=== PATIENT | female | born 1950 | race Caucasian/White ===

== ENCOUNTER 2018-09-24 07:44 | Day surgery (SDC) | payer MEDICARE, OTHER ==
[~2018-09-24] VITALS: Ht 167.6 cm; Wt 93.9 kg
--- NOTE | ~2018-09-24 | OP ---
PATIENT NAME: SAJAN BONNER MEDICAL RECORD: [id number] :50 LOCATION:[facility] ADMISSION DATE: SURGEON: AILEEN GUIDRY MD DATE OF OPERATION: 09/24/2018 REFERRING PHYSICIAN: Isidro Copeland MD PREOPERATIVE DIAGNOSIS: ESRD, dependence on hemodialysis. POSTOPERATIVE DIAGNOSIS: ESRD, dependence on hemodialysis. OPERATION PERFORMED: Implantation of a Propaten 6-mm straight PTFE AV graft in the right arm proximal brachial artery to proximal basilic vein in loop configuration. SURGEON: Aileen Guidry MD ANESTHESIA: General plus regional block per [employer]. PREOPERATIVE NOTE: Ms. Bonner is a 68-year-old white female patient with end-stage renal disease, who is dialyzing now with a tunneled dialysis catheter and needs long-term access. She has had a stroke and has a somewhat withered right arm and it is the right arm we will try to place her access in. She has had a vein mapping study which indicated possibly adequate-sized basilic and maybe cephalic vein in the right arm for primary fistula. The scrap preparer's recommendation was that she have an AV graft. DESCRIPTION OF PROCEDURE: The patient was given a supraclavicular nerve block and then IV sedation in supine position. She was prepped and draped in a sterile manner. We applied nitroglycerin to the skin of the arm and forearm and applied a Carey drain as a proximal venous tourniquet. I examined her with Duplex ultrasound and found that her veins were really quite small and I thought that we could not be assured that she would mature a primary fistula and decided at that point to go ahead and do a graft. This would need to be based proximally to reduce her risk of steal. I examined her axilla and upper arm with ultrasound and identified a site in the proximal basilic vein and proximal brachial artery just out beyond the axilla for the anastomosis. The patient was given a general anesthetic because of inadequate analgesia in the axilla and upper arm. A longitudinal incision was made in the brachial artery and the basilic vein were exposed and controlled with Silastic loops. I chose a 6-mm Propaten graft and placed it in an almost circular tunnel such that it would take origin from the brachial artery and pass inferiorly and laterally and then back up medially to the basilic vein. The artery was occluded with Silastic loops, opened, and flushed with heparinized saline. The graft was shortened and bevelled and it was then also flushed with heparinized saline. It was then sutured end-to-side end of graft to side of artery with continuous running 6-0 Prolene, and after that, the suture line was treated with BioGlue. The suture line was found to be hemostatic. The graft and artery were flushed again with heparinized saline and the graft clamped. The vein was occluded with Silastic loops and opened. It was flushed with heparinized saline. The graft was shortened and bevelled and anastomosed end-to-side to the vein with running 6-0 Prolene. When all was completed and the loops were released and clamps opened, excellent flow was established immediately in the graft. There was no bleeding of any consequence. The wounds were irrigated with saline and then closed with interrupted inverted 3-0 Vicryl and then running intracuticular 4-0 Stratafix OPERATIVE REPORT [id number] SAJAN BONNER suture. The incisions were sealed with glue and dressed with Maxorb Ag, Tegaderm, and Cavilon skin prep. Preoperatively, the patient had a very weak palpable radial pulse. Postoperatively, she has very weak pulsatile flow in the radial artery with the graft occluded and it essentially vanishes with opening the graft. The ulnar artery seems to be dominant with a good pulsatile Doppler flow signal with the graft compressed, but this maintains a pretty good pulsatile signal even with the graft open. There was good flow by Doppler in the brachial artery with and without graft compression at the level of the elbow. I believe the patient will have adequate perfusion of the hand and forearm. My plan is for her to go home this evening and return to see me in my office next week. She will return sooner if there are any problems. The patient was awakened and taken to the recovery room. Blood loss was minimal, probably 5-10 cc, none was replaced. All sponges, instruments, and needles were accounted for and no specimen was submitted for histopathology. She is given a prescription for #20 tramadol 50 mg tablets, she can take one or two p.o. q. 4 hours p.r.n. pain; and in addition, she will be encouraged to take Tylenol and/or ibuprofen along with or in between the tramadol doses. TRANSINT:[id number] Voice Confirmation ID: [id number] DOCUMENT ID: [id number] AILEEN GUIDRY MD at 1132 CC: ISIDRO COPELAND [id number] DICTATION DATE: 09/24/181831 MONITORING AND EVALUATION ADVISOR: 09/24/181911 [facility] 09/24/18 [facility] [address] [place] [address]
[2018-09-24 08:01] LABS: BASOPHILS 0.3 % (0-2); EOSINOPHILS 2.4 % (0-7); HEMATOCRIT 33.8 % (36.0-48.0); HEMOGLOBIN 10.8 g/dL (12-16); IMMATURE GRANULOCYTES 0.5 % (0-5); LYMPHOCYTES 21.3 % (15-50); MCH 29.8 pg (26.0-34.0); MCV 93.4 fL (80.0-100.0); MEAN PLATELET VOLUME 8.8 fL (7.4-10.4); NEUTROPHILS 67.5 % (40-80); PLATELET COUNT 180 10x3/uL (130-400); RBC 3.62 10x6/uL (4.00-5.40); WBC 6.2 10x3/uL (4.8-10.8)
[2018-09-24 08:21] LABS: ANION GAP 11.7 mmol/L (8-16); CALCIUM 8.5 mg/dL (8.5-10.1); CARBON DIOXIDE 28.7 mmol/L (21.0-32.0); CREATININE - SERUM 3.2 mg/dL (0.6-1.3); POTASSIUM - SERUM 4.4 mmol/L (3.5-5.1)
[2018-09-24 08:36] LABS: INR 0.96 (0.85-1.17); PROTIME 12.4 SECONDS (11.6-15.0)
[2018-09-24 08:37] LABS: APTT 28.1 SECONDS (22.8-39.4)
[2018-09-24] MEDS ORDERED: LEVOTHYROXINE75 MCG PO (10:03)
[2018-09-24] MEDS ORDERED: PAROXETINE HCL10 MG PO (10:03)
[2018-09-24] MEDS ORDERED: NORVASC10 MG (10:05)
[2018-09-24] MEDS ORDERED: BUMEX2 MG PO (10:05)
[2018-09-24] MEDS ORDERED: ZYLOPRIM100 MG (10:06)
[2018-09-24] MEDS ORDERED: RENA-VITE TABL0.8 MG PO (10:06)
[2018-09-24] MEDS ORDERED: AMBIEN5 MG PO (10:07)
[2018-09-24] MEDS ORDERED: CYTOMEL5 MCG PO (10:07)
[2018-09-24] MEDS ORDERED: RENVELA800 MG PO (10:08)
[2018-09-24] MEDS ORDERED: HYDRALAZINE HCL50 MG PO (10:08)
[2018-09-24] MEDS ORDERED: LIPITOR40 MG PO (10:09)
[2018-09-24] MEDS ORDERED: REQUIP1 MG PO (10:09)
[2018-09-24] MEDS ORDERED: ISOSORBIDE MONO60 M1 PO (10:10)
[2018-09-24] MEDS ORDERED: COREG6.25 MG PO (10:10)
[2018-09-24] MEDS ORDERED: CARDURA2 MG PO (10:11)
[2018-09-24 10:22] VITALS: BP 151/63; Ht 167.6 cm; Wt 93.9 kg
[2018-09-24] MEDS ORDERED: ULTRAM50 MG PO (19:02)
== END 2018-09-24 20:31 | disposition home or self-care (01) ==
LOC: D.OPS 07:44
PROVIDERS: Surgery
DX: N18.6 End stage renal disease (principal); Z99.2 Dependence on renal dialysis; Z01.812 Encounter for preprocedural laboratory examination

== ENCOUNTER 2018-10-02 10:02 | Day surgery (SDC) | payer MEDICARE, OTHER ==
[~2018-10-02] VITALS: Ht 167.6 cm; Wt 93.4 kg
[~2018-10-02 10:02] MED LIST: AMBIEN5 MG PO; BUMEX2 MG PO; CARDURA2 MG PO; COREG6.25 MG PO; CYTOMEL5 MCG PO; HYDRALAZINE HCL50 MG PO; ISOSORBIDE MONO60 M1 PO; LEVOTHYROXINE75 MCG PO; LIPITOR40 MG PO; NORVASC10 MG; PAROXETINE HCL10 MG PO; RENA-VITE TABL0.8 MG PO; RENVELA800 MG PO; REQUIP1 MG PO; ULTRAM50 MG PO; ZYLOPRIM100 MG
[2018-10-02 10:23] VITALS: BP 190/78
[2018-10-02 11:45] LABS: BASOPHILS 0.4 % (0-2); EOSINOPHILS 4.1 % (0-7); HEMATOCRIT 32.2 % (36.0-48.0); HEMOGLOBIN 10.5 g/dL (12-16); IMMATURE GRANULOCYTES 0.9 % (0-5); MCH 30.2 pg (26.0-34.0); MCHC 32.6 g/dL (31.0-37.0); MCV 92.5 fL (80.0-100.0); MEAN PLATELET VOLUME 9.2 fL (7.4-10.4); MONOCYTES 8.1 % (2-11); NEUTROPHILS 61.5 % (40-80); PLATELET COUNT 180 10x3/uL (130-400); RBC 3.48 10x6/uL (4.00-5.40); RDW 15.5 % (11.5-14.5); WBC 5.7 10x3/uL (4.8-10.8)
[2018-10-02 11:57] LABS: ALBUMIN 3.1 g/dL (3.4-5.0); BILIRUBIN - TOTAL 0.49 mg/dL (0.2-1.3); CALCIUM 9.2 mg/dL (8.5-10.1); CARBON DIOXIDE 27.9 mmol/L (21.0-32.0); CREATININE - SERUM 3.5 mg/dL (0.6-1.3); POTASSIUM - SERUM 3.9 mmol/L (3.5-5.1); PROTEIN - SERUM 6.7 g/dL (6.4-8.2)
[2018-10-02 13:43] VITALS: Ht 167.6 cm; Wt 93.4 kg
== END 2018-10-02 16:10 | disposition home or self-care (01) ==
LOC: D.ER 10:02 → D.OPS 10:02 → EDSTATUS 12:33 → D.OPS 16:10
PROVIDERS: Family Medicine
DX: T82.898A Other specified complication of vascular prosthetic devices, implants and grafts, initial encounter (principal); Y83.8 Other surgical procedures as the cause of abnormal reaction of the patient, or of later complication, without mention of misadventure at the time of the procedure; E11.22 Type 2 diabetes mellitus with diabetic chronic kidney disease; I12.0 Hypertensive chronic kidney disease with stage 5 chronic kidney disease or end stage renal disease; N18.6 End stage renal disease; Z99.2 Dependence on renal dialysis; I25.10 Atherosclerotic heart disease of native coronary artery without angina pectoris; E11.40 Type 2 diabetes mellitus with diabetic neuropathy, unspecified; Z86.73 Personal history of transient ischemic attack (TIA), and cerebral infarction without residual deficits; F41.8 Other specified anxiety disorders; F32.9 Major depressive disorder, single episode, unspecified

== ENCOUNTER → 2018-10-10 15:18 | Outpatient (CLI) | payer MEDICARE, OTHER ==
[2018-10-02 13:43] VITALS: BMI 33.4
== END | disposition home or self-care (01) ==
LOC: D.CT 15:18
DX: N18.6 End stage renal disease (principal)

== ENCOUNTER 2018-11-26 07:37 | Inpatient (IN) | payer MEDICARE, BC ==
[~2018-11-26] VITALS: Ht 167.6 cm; Wt 98.6 kg
--- NOTE | ~2018-11-26 | HEMODYNAMI ---
PATIENT:SAJAN BONNER MEDICAL RECORD: [id number] : 50 [id number] ADMISSION DATE: 11/26/18 Generatedon:11/27/201810:47 Patient name: SAJAN BONNER Patient #: [id number] SSN: : 1950 Date of study: 11/27/2018 Page: Of Hemodynamic Procedure Report Patient Data Patient Demographics Procedure consent was obtained First Name: SAJAN Gender: Female Last Name: HA : 1950 [facility] Initial: S Age: 68 year(s) Patient #: [id number] Race: Unknown Additional ID: [id number] Contact details Address: [address] [place] [address] rd State: [place] City: [place] Zip code: [address] Past Medical History Allergies: No known allergies Admission Admission Data Admission Date: 11/26/2018 Admission Time: 7:37 Room #: D.2138 Lab Results Lab Result Date: 11/27/2018 Lab Result Time: 0:00 Biochemistry Name Units Result Min Max BUN mg/dl 12 --(-*--)-- 7 18 Creatinine mg/dl 0.9 --(-*--)-- 0.6 1.3 CBC Name Units Result Min Max Hemoglobin g/dl 13.7 --(*---)-- 13.5 17.5 Procedure Procedure Types Cath Procedure Diagnostic Procedure C [facility] w/Coronaries Sedation Charges Moderate Sedation up to 45 minutes PCI Procedure Coronary Stent Coronary Stent Initial Procedure Description Procedure Date Procedure Date: 11/27/2018 Procedure Start Time: 9:49 Procedure End Time: 10:47 Procedure Staff Name Function Ricci Jane MD Performing Physician Maria C Mendez RT Monitor Lanie Quispe RN Nurse Tristen Ahumada RT Scrub Michael Ricks RN Direct Marketing Analyst Procedure Data Cath Procedure Fluoroscopy Diagnostic fluoroscopy Total fluoroscopy Time: time: 21.5 min 21.5 min Diagnostic fluoroscopy Total fluoroscopy dose: dose: 1536 mGy 1536 mGy Contrast Material Contrast Material Type Amount (ml) Isovue 300 193 Entry Location Entry Primary Successful Side Size Upsize Upsize Entry Closure Succes sful Closure Location (Fr) 1 (Fr) 2 (Fr) Remarks Device Remarks Femoral Right 5 Fr 6 Fr Exoseal artery Short Estimated blood loss: 10 ml Diagnostic catheters Device Type Used For End Catheter Placement MULTIPACK JL 4.0 5Fr Procedure catheter MULTIPACK 3DRC 5Fr Procedure catheter MULTIPACK Pigtail 5 Fr Procedure catheter Procedure Complications No complications Procedure Medications Medication Administration Route Dosage 0.9% NaCl I.V. Oxygen etCO2 Nasal cannula 2 l/min Lidocaine 2% added to field 20 Heparin Flush Bag added to field 2 bags (1000units/500ml NS) Versed I.V. 2 mg Fentanyl I.V. 50 mcg Versed I.V. 1 mg Fentanyl I.V. 25 mcg Heparin Bolus I.V. 5000 units Integrilin (Bolus I.V. 9 ml 2mg/ml) Versed I.V. 1 mg Fentanyl I.V. 25 mcg Versed I.V. 1 mg Plavix P.O. 300 mg Hemodynamics Rest HGB: 13.7 (g/dl) Heart Rate: 86 (bpm) Pressure Samples Time Site Value (mmHg) Purpose Heart Use Rate(bpm) 9:55 LV 99/-1,3 Snapshot 88 9:56 AO 91/43(62) Pullback 86 9:56 LV 93/0,2 Pullback 86 Gradients Valve Time Site 1 Site 2 Mean SEP/DFP Peak To Heart Use (mmHg) (sec/min) Peak Rate (mmHg) (bpm) Aortic 9:56 LV AO 5 10 2 86 93/0,2 91/43(62) Calculations Valve P-P Mean Valve Index Valve Source Name Gradient Area Flow (cm2) Aortic 2 5 2 5 Snapshots Pre Cath Intra NCS Post Cath Vital Signs Time Heart Resp SPO2 etCO2 NIBP (mmHg) Rhythm Pain Sedation Rate (ipm) (%) (mmHg) Status Level (bpm) 9:35:55 82 13 98 33.2 125/59(80) NSR 0 (11) 10(A) , No pain 9:41:24 84 11 97 31.7 96/51(69) NSR 0 (11) 10(A) , No pain 9:45:44 83 10 97 18.1 98/48(61) NSR 0 (11) 10(A) , No pain 9:50:07 81 18 97 29.4 101/48(67) NSR 0 (11) 10(A) , No pain 9:54:31 82 11 97 31.7 100/45(77) NSR 0 (11) 9(A) , No pain 9:58:53 82 12 97 32.4 107/47(66) NSR 0 (11) 9(A) , No pain 10:03:11 94 10 97 31.7 98/57(73) NSR 0 (11) 9(A) , No pain 10:07:33 86 10 97 32 108/47(77) NSR 0 (11) 9(A) , No pain 10:11:57 87 11 97 31 105/56(80) NSR 0 (11) 9(A) , No pain 10:16:17 85 10 98 32.5 118/59(83) NSR 0 (11) 9(A) , No pain 10:20:42 81 9 98 32.5 110/59(84) NSR 0 (11) 9(A) , No pain 10:25:04 88 10 98 32.5 122/63(90) NSR 0 (11) 9(A) , No pain 10:27:29 86 10 98 33.2 133/59(94) NSR 0 (11) 9(A) , No pain 10:32:00 89 11 98 14.3 140/65(101) NSR 0 (11) 9(A) , No pain 10:36:22 91 10 98 34 117/65(84) NSR 0 (11) 9(A) , No pain 10:41:54 91 13 98 32.5 135/60(87) NSR 0 (11) 10(A) , No pain 10:46:20 81 11 98 9.8 136/60(104) NSR 0 (11) 10(A) , No pain Medications Time Medication Route Dose Verified Delivered Reason Notes Effectiveness by by 9:34:43 0.9% NaCl I.V. kvo Ricci Dela Cruz used for Lucinda Jose Enrique procedure MD POLANCO 9:34:50 Oxygen etCO2 2 Ricci Dela Cruz used for Nasal l/min Lucinda Jose Enrique procedure cannula MD POLANCO 9:34:56 Lidocaine 2% added 20ml Ricci Wynne for local to vial [facility] anesthetic field MD HODGSON 9:35:00 Heparin Flush added 2 Ricci Wynne used for Bag to bags [facility] procedure (1000units/500ml field MD HODGSON NS) 9:46:46 Versed I.V. 2 mg Ricci Lanie for sedation St Saúl Quispe MD RN 9:46:53 Fentanyl I.V. 50 Ricci Lanie for sedation mcg St Saúl Quispe MD RN 9:52:30 Versed I.V. 1 mg Ricci Lanie for sedation St Saúl Quispe MD RN 9:52:43 Fentanyl I.V. 25 Ricci Lanie for sedation mcg St Saúl Quispe MD RN 9:58:56 Heparin Bolus I.V. 5000 Ricci Lanie for verif ied units [facility] anticoagulation with Dr. HODGSON RN Kenneth 9:59:09 Integrilin I.V. 9 ml Ricci Lanie for waste d (Bolus 2mg/ml) LucindaSaúl Quispe anticoagulation 1mL MD POLANCO 10:18:22 Versed I.V. 1 mg Ricci Lanie for sedation St Saúl Quispe MD RN 10:18:26 Fentanyl I.V. 25 Ricci Lanie for sedation mcg St Saúl Quispe MD RN 10:31:40 Versed I.V. 1 mg Ricci Lanie for sedation St Saúl Quispe MD RN 10:41:32 Plavix P.O. 300 Ricci Lanie for mg St Saúl Quispe antiplatelet RN therapy Procedure Log Time Note 8:49:54 Signed procedure consent form obtained from patient. 8:49:55 Diagnostic Cath status Elective 8:49:56 Time tracking: Regular hours (M-F 7:00 - 5:00) 8:50:01 Plan of Care:Hemodynamics will remain stable., Cardiac rhythm will remain stable., Comfort level will be maintained., Respiratory function will remain adequate., Patient/ family verbilizes understanding of procedure., Procedure tolerated without complication., Recovers from procedure without complications.. 8:56:53 H&P Date Dictated: 11/26/2018 New H&P dictated by physician.. 8:57:46 Patient allergic to No known allergies 9:00:34 Lab Result : BUN 12 mg/dl 9:00:34 Lab Result : Hemoglobin 13.7 g/dl 9:00:34 Lab Result : Creatinine 0.9 mg/dl 9:11:33 Michael Ricks RN sent for patient. Start room use. 9:24:38 Patient received from PCU to CCL 1 Alert and oriented. Tansferred to table in Supine position. 9:24:38 Warm blankets applied, and nico hugger turned on for patient comfort. 9:24:39 Correct patient and procedure confirmed by team. 9:24:40 ECG and BP/O2 sat monitors applied to patient. 9:34:35 Vital chart was started 9:34:43 0.9% NaCl kvo I.V. was administered by Lanie Quispe RN; used for procedure; 9:34:50 Oxygen 2 l/min etCO2 Nasal cannula was administered by Lanie Quispe RN; used for procedure; 9:34:56 Lidocaine 2% 20ml vial added to field was administered by Ricci Jane MD; for local anesthetic; 9:35:00 Heparin Flush Bag (1000units/500ml NS) 2 bags added to field was administered by Ricci Jane MD; used for procedure; 9:40:17 Baseline sample Acquired. 9:40:27 Rhythm: sinus rhythm 9:40:28 Pre-procedure instructions explained to patient. 9:40:29 Pre-op teaching completed and patient verbalized understanding. 9:40:30 Family in patients room. 9:40:32 Is patient on blood thinner?Yes 9:40:36 ACC The patient was administered the following blood thiners within the last 24 hours: ACCPlavix 9:40:38 Patient diabetic? Yes. 9:40:39 If diabetic: On Metformin? No 9:40:53 Previous problem with sedation/anesthesia? No ? 9:40:55 Snore? Yes 9:40:56 Sleep apnea? Yes 9:40:58 Deviated septum? No 9:40:59 Opens mouth fully? Yes 9:41:01 Sticks out tongue? Yes 9:41:06 Airway obstruction? No ? 9:41:08 Dentures? No ? 9:41:12 Pre procedure: right dorsailis pedis pulse 2+ Normal; easily identifiable; not easily obliterated 9:41:14 Patient pain scale 0/10 ?. 9:41:44 PATIENT ARRIVAL WITH DIALYSIS CATHETER USED FOR IV ACCESS 9:41:50 Lab results completed and on chart. 9:41:53 Right groin area was prepped with chlora-prep and draped in sterile fashion 9:41:55 Alarms reviewed by R. N. 9:41:55 Sharps counted by scrub and verified by R.N. 9:42:00 Use device set Femoral Dx 9:42:02 ACIST Syringe (60733) opened to sterile field. 9:42:02 Bag Decanter (2002S) opened to sterile field. 9:42:05 ACIST Hand Control (08865) opened to sterile field. 9:42:05 ACIST Manifold (93085) opened to sterile field. 9:42:07 Tegaderm 4 x 4 (1626W) opened to sterile field. 9:42:08 Medline Cath Pack ([id number]) opened to sterile field. 9:42:09 DIAGNOSTIC WIRE .035 260cm J wire (644606) opened to sterile field. 9:42:10 DIAGNOSTIC Multipack 5Fr catheter set (AC3255) opened to sterile field. 9:42:11 SHEATH 5FR [place] (JQN391) opened to sterile field. 9:43:14 Zero performed for pressure channel P1 9:46:26 --------ALL STOP TIME OUT------ 9:46:29 Right groin site verified by team. 9:46:30 Final Timeout: patient, procedure, and site verified with staff and physician. All members of the team are in agreement. 9:46:46 Versed 2 mg I.V. was administered by Lanie Quispe RN; for sedation; 9:46:53 Fentanyl 50 mcg I.V. was administered by Lanie Quispe RN; for sedation; 9:46:57 Physical assessment completed. ASA score P 3 - A patient with severe systemic disease as per Ricci Jane MD. 9:47:01 Sedation plan: IV Moderate Sedation Medication:Versed, Fentanyl 9:49:37 Procedure started. 9:49:37 Full Disclosure recording started 9:49:50 Local anesthetic to right femoral artery with Lidocaine 2% by Ricci Jane MD.INITIAL ACCESS ONLY 9:51:04 A 5 Fr sheath was inserted into the Right Femoral artery 9:51:25 A MULTIPACK JL 4.0 5Fr catheter was advanced over the wire and used for Procedure. 9:52:16 LCA angiography performed. 9:52:30 Versed 1 mg I.V. was administered by Lanie Quispe RN; for sedation; 9:52:33 Catheter removed. 9:52:43 Fentanyl 25 mcg I.V. was administered by Lanie Quispe RN; for sedation; 9:52:55 A MULTIPACK 3DRC 5Fr catheter was advanced over the wire and used for Procedure. 9:54:41 RCA angiography performed. 9:54:56 Catheter removed. 9:55:08 A MULTIPACK Pigtail 5 Fr catheter was advanced over the wire and used for Procedure. 9:55:22 LV gram done using KASPER 9:55:25 Injector settings: Ml/sec: 10, Volume: 20, 9:55:51 LV hemodynamics recorded. 9:56:22 EF : 40 % 9:56:23 Catheter removed. 9:56:31 SHEATH 6FR [place] (RMZ830) opened to sterile field. 9:56:46 INFLATOR Merit BasixCompak (EN2701) opened to sterile field. 9:56:56 WHISPER 300cm guide wire ([id number]) opened to sterile field. 9:57:37 GUIDE 6FR HS I SH catheter ([id number]) opened to sterile field. 9:57:46 Sheath upsized to a 6 Fr Short. 9:58:29 6 Fr HS 1 SH guide catheter was inserted over the wire 9:58:56 Heparin Bolus 5000 units I.V. was administered by Lanie Quispe RN; for anticoagulation; verified with Dr. Kilgore 9:59:09 Integrilin (Bolus 2mg/ml) 9 ml I.V. was administered by Lanie Quispe RN; for anticoagulation; wasted 1mL 10:00:19 WHISPER 300 wire advanced. 10:02:56 Inflate balloon Inflation number: 1 A EMERGE OTW 2.0 x 20 balloon ([id number]) was prepped and advanced across the Prox RCA, then inflated to 10 PEACE for 0:10 (min:sec). 10:03:20 Inflation number: 2 The EMERGE OTW 2.0 x 20 balloon ([id number]) was reinflated across the Prox RCA, to 10 PEACE for 0:10 (min:sec). 10:03:52 Inflation number: 3 The EMERGE OTW 2.0 x 20 balloon ([id number]) was reinflated across the Prox RCA, to 10 PEACE for 0:10 (min:sec). 10:04:11 Inflation number: 4 The EMERGE OTW 2.0 x 20 balloon ([id number]) was reinflated across the Prox RCA, to 10 PEACE for 0:10 (min:sec). 10:05:21 Balloon removed over the wire. 10:05:22 Wire removed. 10:05:23 Guide catheter removed. 10:05:39 GUIDE REMOVED. NOT GOOD SUPPORT 10:06:04 GUIDE 6FR 3DRIGHT catheter ([id number]) opened to sterile field. 10:06:32 6 Fr 3D RIGHT guide catheter was inserted over the wire 10:07:51 WHISPER 300cm guide wire ([id number]) opened to sterile field. 10:11:00 Guide Catheter removed. unable to cannulate vessel. 10:11:24 GUIDE 6FR AR 1.0 SH catheter ([id number]) opened to sterile field. 10:11:34 DIAGNOSTIC WIRE .035 260cm J wire (449869) opened to sterile field. 10:11:52 6 Fr AR 1 SH guide catheter was inserted over the wire 10:15:08 Guide Catheter removed. unable to cannulate vessel. 10:15:30 GUIDE 6FR HS II SH catheter ([id number]) opened to sterile field. 10:15:38 6 Fr HS 2 SH guide catheter was inserted over the wire 10:17:29 WHISPER 300 wire advanced. 10:18:22 Versed 1 mg I.V. was administered by Lanie Quispe RN; for sedation; 10:18:26 Fentanyl 25 mcg I.V. was administered by Lanie Quispe RN; for sedation; 10:18:33 Wire advanced across lesion. 10:20:18 BALLOON ADVANCE TO EXCHANGE WIRE 10:20:27 CHOICE PT Extra Support J 300cm guide wire ([id number]) opened to sterile field. 10:20:36 CHOICE ES 300 wire advanced. 10:20:37 Wire advanced across lesion. 10:21:32 Inflate balloon Inflation number: 1 A EMERGE OTW 1.5 x 20 balloon ([id number]) was prepped and advanced across the Prox RCA1, then inflated to 14 PEACE for 0:10 (min:sec). 10:22:03 Inflation number: 2 The EMERGE OTW 1.5 x 20 balloon ([id number]) was reinflated across the Prox RCA1, to 14 PEACE for 0:10 (min:sec). 10:22:26 Inflation number: 3 The EMERGE OTW 1.5 x 20 balloon ([id number]) was reinflated across the Prox RCA1, to 14 PEACE for 0:10 (min:sec). 10:23:02 Balloon removed over the wire. 10:28:39 WHISPER 300cm guide wire ([id number]) opened to sterile field. 10:28:43 WHISPER WIRE ADVANCED A NINA WIRE 10:31:14 NINA WIRE REMOVED 10:31:40 Versed 1 mg I.V. was administered by Lanie Quispe RN; for sedation; 10:32:02 Place stent Inflation Number: 4 A INTEGRITY OTW 3.0 X 12 stent ([id number]) was prepped and advanced across the Prox RCA1. The stent was deployed at 14 PEACE for 0:20 (min:sec). 10:35:50 Inflation number: 5 The stent balloon was then re-inflated across the Prox RCA1 to 14 PEACE for 0:10 (min:sec). 10:36:51 Stent catheter was removed intact over wire. 10:37:57 Place stent Inflation Number: 5 A INTEGRITY OTW 3.0 X 15 stent ([id number]) was prepped and advanced across the Prox RCA. The stent was deployed at 14 PEACE for 0:10 (min:sec). 10:38:14 Stent catheter was removed intact over wire. 10:40:16 The EMERGE OTW 3.0 x 15 balloon ([id number]) was advanced and then removed because in body, not inflated 10:40:58 EXOSEAL 6Fr (EX600) opened to sterile field. 10:41:08 Sheath removed intact; hemostasis achieved with Exoseal to the Right Femoral artery. 10:41:12 Procedure ended.(Physican Out) 10:41:32 Plavix 300 mg P.O. was administered by Lanie Quispe RN; for antiplatelet therapy; 10:44:19 Fluoroscopy time 21.50 minutes. 10:44:25 Fluoroscopy dose: 1536 mGy 10:44:25 Flurop Dose total: 1536 10:44:28 Contrast amount:Isovue 300 193ml. 10:44:30 Sharps counted by scrub and verified by R.N. 10:44:35 Post-op/insertion site Right Femoral artery dressed using a 4 x 4 and Tegaderm. 10:44:39 Post-procedure physical assessment completed. ASA score P 3 - A patient with severe systemic disease as per Ricci Jane MD. 10:44:45 Post procedure rhythm: sinus rhythm 10:45:04 Estimated blood loss: 10 ml 10:45:14 Post procedure instruction explained to patient.Patient verbalizes understanding. 10:45:14 Patient needs reinforcement of post procedure teaching. 10:45:34 Procedure type changed to Cath procedure, Diagnostic procedure, LHC, LHC w/Coronaries, Sedation Charges, Moderate Sedation up to 45 minutes, PCI procedure, Coronary Stent, Coronary Stent Initial 10:47:06 Procedure and supply charges have been captured, reviewed, submitted and are correct. 10:47:08 Procedure Complication : No complications 10:47:10 Vital chart was stopped 10:47:10 See physician's report for complete and final results. 10:47:12 Report given to PCU. 10:47:14 Patient transfered to PCU with Bed. 10:47:16 Procedure ended. 10:47:16 Full Disclosure recording stopped 10:47:19 End room use (Document Last) Intervention Summary Intervention Notes Time ActionType Lesion and Equipment Action# Pressure Duration Attributes Used 10:02:56 Inflate Prox RCA EMERGE OTW 1 10 00:10 balloon 2.0 x 20 balloon ([id number]) 10:03:20 Reinflate Prox RCA EMERGE OTW 2 10 00:10 balloon 2.0 x 20 balloon ([id number]) 10:03:52 Reinflate Prox RCA EMERGE OTW 3 10 00:10 balloon 2.0 x 20 balloon ([id number]) 10:04:11 Reinflate Prox RCA EMERGE OTW 4 10 00:10 balloon 2.0 x 20 balloon ([id number]) 10:21:32 Inflate Prox RCA1 EMERGE OTW 1 14 00:10 balloon 1.5 x 20 balloon ([id number]) 10:22:03 Reinflate Prox RCA1 EMERGE OTW 2 14 00:10 balloon 1.5 x 20 balloon ([id number]) 10:22:26 Reinflate Prox RCA1 EMERGE OTW 3 14 00:10 balloon 1.5 x 20 balloon ([id number]) 10:32:02 Place stent Prox RCA1 INTEGRITY 4 14 00:20 OTW 3.0 X 12 stent ([id number]) 10:35:50 Reinflate Prox RCA1 INTEGRITY 5 14 00:10 stent OTW 3.0 X 12 balloon stent ([id number]) 10:37:57 Place stent Prox RCA INTEGRITY 5 14 00:10 OTW 3.0 X 15 stent ([id number]) 10:40:16 Discard EMERGE OTW Balloon 3.0 x 15 balloon ([id number]) Device Usage Item Name Manufacture Quantity Catalog Number Hospital Part Current Min imal Lot# / Charge Number Stock Stock Serial# Code ACIST Acist 1 58539 009142 505632 413517 20 Syringe Medical (89714) Systems Inc Bag Decanter Microtek 1 2001S 227443 85765 912138 5 (2001S) Medical Inc. ACIST Hand Acist 1 57886 395434 877512 434129 5 Control Medical (93384) Systems Inc ACIST Acist 1 35262 898217 017632 460629 5 Manifold Medical (00516) Systems Inc Tegaderm 4 x 3M 1 1626W 851136 502410 748662 5 4 (1626W) Medline Cath Medline 1 [id number] 147635 49898 094385 5 Pack ([id number]) DIAGNOSTIC [facility] [place] 2 787513 180698 484223 828623 30 WIRE .035 260cm J wire (346567) DIAGNOSTIC Cardinal 1 IY8871 282330 61001 468015 30 Multipack Health 5Fr catheter set (OA9769) SHEATH 5FR Terumo 1 TOU578 508522 709167 264062 5 [place] (XEB643) MULTIPACK JL Cardinal 1 353702 5 4.0 5Fr Health catheter MULTIPACK Cardinal 1 701692 5 3DRC 5Fr Health catheter MULTIPACK Cardinal 1 283118 5 Pigtail 5 Fr Health catheter SHEATH 6FR Terumo 1 HBV703 686357 991910 431146 40 [place] (EDZ147) INFLATOR [facility] 1 ZZ9611 522939 140594 342230 15 [facility] BasixCompak (GW8380) WHISPER [place] 3 [id number] 819075 582614 674384 5 300cm guide Vascular wire (5162418EV) GUIDE 6FR HS Medtronic 1 [id number] 234333 12621 498849 1 I SH catheter ([id number]) EMERGE OTW [place] 1 [id number] 296185 491512 093084 5 [id number] 2.0 x 20 Scientific balloon ([id number]) GUIDE 6FR Medtronic 1 [id number] 168501 708726 561632 1 3DRIGHT catheter ([id number]) GUIDE 6FR AR Medtronic 1 [id number] 070581 80440 298472 1 1.0 SH catheter ([id number]) GUIDE 6FR HS Medtronic 1 [id number] 314156 30952 734773 1 II SH catheter (CO2AIFGRE) CHOICE PT [place] 1 [id number] 144298 625896 421966 5 Extra Scientific Support J 300cm guide wire ([id number]) EMERGE OTW [place] 1 [id number] 084146 248244 830276 5 [id number] 1.5 x 20 Scientific balloon ([id number]) INTEGRITY Medtronic 1 [id number] 850028 321097 7 [id number] OTW 3.0 X 12 stent ([id number]) INTEGRITY Medtronic 1 [id number] 353426 513689 9 [id number] OTW 3.0 X 15 stent ([id number]) EMERGE OTW [place] 1 [id number] 079796 183519 301378 5 [id number] 3.0 x 15 Scientific balloon ([id number]) EXOSEAL 6Fr Cardinal 1 EX600 187491 559692 825484 10 (EX600) Health Signature Audit [place] Stage Time Signature Unsigned Intra-Procedure 11/27/2018 Maria C Mendez 10:47:55 AM RT(R) Signatures Monitor : Maria C Mendez Signature : RT Date : Time : [facility] [address] [place] [address]
--- NOTE | ~2018-11-26 | HEMODYNAMI ---
PATIENT:SAJAN BONNER MEDICAL RECORD: [id number] : 50 [id number] ADMISSION DATE: 11/27/18 Generatedon:11/28/201817:43 Patient name: SAJAN BONNER Patient #: [id number] SSN: : 1950 Date of study: 11/28/2018 Page: Of Hemodynamic Procedure Report Patient Data Patient Demographics Procedure consent was obtained First Name: SAJAN Gender: Female Last Name: HA : 1950 [facility] Initial: S Age: 68 year(s) Patient #: [id number] Race: Unknown Additional ID: [id number] Contact details Address: [address] [place] [address] rd State: [place] City: [place] Zip code: [address] Past Medical History Allergies: No known allergies Admission Admission Data Admission Date: 11/27/2018 Admission Time: 15:17 Room #: D.2138 Lab Results Lab Result Date: 11/27/2018 Lab Result Time: 0:00 Biochemistry Name Units Result Min Max BUN mg/dl 12 --(-*--)-- 7 18 Creatinine mg/dl 0.9 --(-*--)-- 0.6 1.3 CBC Name Units Result Min Max Hemoglobin g/dl 13.7 --(*---)-- 13.5 17.5 Procedure Procedure Types Cath Procedure Peripheral Cath Diagnostic Procedure Miscellaneous Procedure Description Procedure Date Procedure Date: 11/28/2018 Procedure Start Time: 16:10 Procedure Staff Name Function Saúl Rothman MD Performing Physician Cl Flores RT Monitor Esha Núñez RN Nurse Marnie Andrade Scrub Procedure Data Cath Procedure Fluoroscopy Diagnostic fluoroscopy Total fluoroscopy Time: 8.5 time: 8.5 min min Diagnostic fluoroscopy Total fluoroscopy dose: 281 dose: 281 mGy mGy Contrast Material Contrast Material Type Amount (ml) Isovue 300 95 Entry Location Entry Primary Successful Side Size Upsize Upsize Entry Closure Succes sful Closure Location (Fr) 1 (Fr) 2 (Fr) Remarks Device Remarks Femoral Right 5 Fr 6 Fr Exoseal artery Long Diagnostic catheters Device Type Used For End Catheter Placement Merit ULTRA BOLUS FLUSH Cervicocerebral 5Fr 90CM catheter (arch) aortogram ([id number]) Procedure Medications Medication Administration Route Dosage Heparin Flush Bag added to field 3 bags (1000units/500ml NS) Lidocaine 1% added to field 20 Versed I.V. 1 mg Fentanyl I.V. 50 mcg Versed I.V. 1 mg Fentanyl I.V. 50 mcg Versed I.V. 1 mg Fentanyl I.V. 50 mcg Heparin Bolus I.V. 5000 units Nitroglycerin IC/IA I.A. 200 mcg Nitroglycerin IC/IA I.A. 200 mcg Versed I.V. 1 mg Fentanyl I.V. 50 mcg Hemodynamics Rest Heart Rate: 76 (bpm) Snapshots Pre Cath Intra NCS Post Cath Vital Signs Time Heart Resp SPO2 etCO2 NIBP (mmHg) Rhythm Pain Status Sedation Rate (ipm) (%) (mmHg) Level (bpm) 15:57:55 74 14 99 33.8 191/55(103) NSR 0 (11) , No 9(A) pain 16:02:54 76 26 97 31.5 Measuring NSR 2 (11) , 9(A) Uncomfortable 16:02:58 77 28 97 34.6 215/41(117) NSR 2 (11) , 9(A) Uncomfortable 16:07:51 79 29 97 34.6 186/61(112) NSR 2 (11) , 9(A) Uncomfortable 16:15:01 83 17 97 35.3 190/67(120) NSR 2 (11) , 9(A) Uncomfortable 16:19:54 81 12 96 27.8 165/58(104) NSR 1 (11) , Very 9(A) mild 16:24:41 90 17 92 0 151/51(105) NSR 1 (11) , Very 8(A) mild 16:29:18 90 14 95 21 156/61(98) NSR 1 (11) , Very 8(A) mild 16:33:58 88 32 97 36 166/55(104) NSR 2 (11) , 8(A) Uncomfortable 16:38:41 87 16 95 24 159/54(94) NSR 2 (11) , 8(A) Uncomfortable 16:43:21 90 12 95 17.2 137/46(92) NSR 0 (11) , No 8(A) pain 16:47:52 91 15 96 21 148/53(89) NSR 0 (11) , No 8(A) pain 16:52:26 90 15 96 24.8 156/58(98) NSR 0 (11) , No 8(A) pain 16:57:05 91 15 96 23.3 162/58(112) NSR 0 (11) , No 8(A) pain 17:01:45 91 17 96 27.8 175/60(113) NSR 0 (11) , No 8(A) pain 17:06:32 89 16 96 27.8 163/63(115) NSR 0 (11) , No 8(A) pain 17:11:15 92 15 93 18.8 170/54(100) NSR 0 (11) , No 8(A) pain 17:16:00 92 13 96 23.3 161/60(106) NSR 0 (11) , No 8(A) pain 17:20:40 88 23 97 31.6 174/61(111) NSR 0 (11) , No 8(A) pain 17:25:29 88 17 97 29.3 162/56(110) NSR 0 (11) , No 8(A) pain 17:30:12 88 14 97 36.8 177/55(107) NSR 0 (11) , No 8(A) pain 17:35:11 86 18 97 38.4 Measuring NSR 0 (11) , No 8(A) pain 17:36:25 87 21 97 35.4 171/54(98) NSR 0 (11) , No 8(A) pain 17:41:11 88 14 98 40.6 168/59(113) NSR 0 (11) , No 8(A) pain Medications Time Medication Route Dose Verified Delivered Reason Notes Ef fectiveness by by 15:44:39 Heparin Flush added 3 Saúl Hays used for Bag to bags Lorna Rothman MD procedure (1000units/500ml field NS) 15:44:54 Lidocaine 1% added 20ml Saúl Hays for local to vial Lorna Rothman MD anesthetic field 16:15:58 Versed I.V. 1 mg Saúl Balbuena for sedation Wilton Rothman RN, MD 16:16:11 Fentanyl I.V. 50 Saúl Balbuena for sedation mcg Wilton Rothman RN, MD 16:21:11 Versed I.V. 1 mg Saúl Balbuena for sedation Wilton Rothman RN, MD 16:21:19 Fentanyl I.V. 50 Saúl Balbuena for sedation mcg Wilton Rothman RN, MD 16:35:35 Versed I.V. 1 mg Saúl Balbuena for sedation Wilton Rothman RN, MD 16:35:42 Fentanyl I.V. 50 Saúl Balbuena for sedation mcg Wilton Rothman RN, MD 16:39:23 Heparin Bolus I.V. 5000 Saúl Esha for units Wilton Rothman RN antiplatelet MD therapy 16:47:00 Nitroglycerin I.A. 200 Saúl Hays used for IC/IA mcg Lorna Rothman MD procedure 17:04:49 Nitroglycerin I.A. 200 Saúl Hays used for IC/IA mcg Lorna Rothman MD procedure 17:07:58 Versed I.V. 1 mg Saúl Balbuena for sedation Wilton Rothman RN, MD 17:08:11 Fentanyl I.V. 50 Saúl Balbuena for sedation mcg Wilton Rothman RN, MD Procedure Log Time Note 15:34:44 Cl Flores RT (R) (CV) sent for patient. Start room use. 15:35:02 Time tracking: Regular hours (M-F 7:00 - 5:00) 15:35:09 Plan of Care:Hemodynamics will remain stable., Cardiac rhythm will remain stable., Comfort level will be maintained., Respiratory function will remain adequate., Patient/ family verbilizes understanding of procedure., Procedure tolerated without complication., Recovers from procedure without complications.. 15:35:15 Patient received from Med II to IR Alert and oriented. Tansferred to table in Supine position. 15:35:16 Correct patient and procedure confirmed by team. 15:35:18 Signed procedure consent form obtained from patient. 15:35:19 ECG and BP/O2 sat monitors applied to patient. 15:35:20 Full Disclosure recording started 15:35:21 - 15:35:25 H&P Date Dictated: 11/28/2018 Within 30 days and on chart.. 15:35:25 Pre-procedure instructions explained to patient. 15:35:26 Pre-op teaching completed and patient verbalized understanding. 15:35:28 Family in waiting room. 15:35:29 Patient NPO since Midnight. 15:35:34 Is the patient allergic to Iodine/contrast media? No. 15:36:05 Is patient on blood thinner?Yes 15:36:09 ACC The patient was administered the following blood thiners within the last 24 hours: ACCPlavix 15:36:11 Patient diabetic? Yes. 15:36:13 If diabetic: On Metformin? No 15:36:15 - 15:36:17 ----Pre-sedation anethsthesia assessment.---- 15:36:18 ----Pre-sedation anethsthesia assessment.---- 15:36:22 Previous problem with sedation/anesthesia? No ? 15:36:23 Snore? Yes 15:36:25 Sleep apnea? Yes 15:36:26 Deviated septum? No 15:36:27 Opens mouth fully? Yes 15:36:28 Sticks out tongue? Yes 15:36:33 Airway obstruction? No ? 15:36:36 Dentures? No ? 15:44:39 Heparin Flush Bag (1000units/500ml NS) 3 bags added to field was administered by Saúl Rothman MD; used for procedure; 15:44:54 Lidocaine 1% 20ml vial added to field was administered by Saúl Rothman MD; for local anesthetic; 15:46:04 Use device set IR Diagnostic 15:46:06 ACIST Syringe (59013) opened to sterile field. 15:46:06 ACIST Hand Control (92879) opened to sterile field. 15:46:06 ACIST Manifold (83800) opened to sterile field. 15:46:07 Bag Decanter (2002S) opened to sterile field. 15:46:07 Sterile Angiographic Pack opened to sterile field. 15:46:08 Tegaderm 4 x 4 (1626W) opened to sterile field. 15:46:15 Pre procedure: right dorsailis pedis pulse Doppler 15:46:23 Patient pain scale 0/10 ?. 15:46:28 IV patent on arrival in left forearm with 0.9% NaCl at [facility]. 15:46:29 Sharps counted by scrub and verified by R.N. 15:46:30 Alarms reviewed by R. N. 15:46:34 Right groin area was prepped with chlora-prep and draped in sterile fashion 15:56:19 Baseline sample Acquired. 15:56:19 Vital chart was started 16:06:54 Vital chart was stopped 16:10:39 --------ALL STOP TIME OUT------ 16:10:40 Final Timeout: patient, procedure, and site verified with staff and physician. All members of the team are in agreement. 16:10:44 Right groin site verified by team. 16:10:45 Sedation plan: IV Moderate Sedation Medication:Versed, Fentanyl 16:10:53 Physician arrived 16:10:54 Procedure started. 16:10:55 Local anesthetic to right femoral artery with Lidocaine 1% by Saúl Rothman MD.INITIAL ACCESS ONLY 16:12:13 SHEATH 5FR Coy (FZK990) opened to sterile field. 16:12:14 Micropuncture VSI 4FR kit opened to sterile field. 16:12:14 DOC .035 wire (W44853) opened to sterile field. 16:12:14 TUBING Contrast Injection High Pressure (SPT828N) opened to sterile field. 16:12:25 Access obtained with 4Fr micropunture. 16:12:50 A 5 Fr sheath was inserted into the Right Femoral artery 16:13:21 Vital chart was started 16:15:58 Versed 1 mg I.V. was administered by Esha Núñez RN; for sedation; 16:16:11 Fentanyl 50 mcg I.V. was administered by Esha Núñez RN; for sedation ; 16:19:39 A Merit ULTRA BOLUS FLUSH 5Fr 90CM catheter ([id number]) was advanced over the wire and used for Cervicocerebral (arch) aortogram. 16:21:11 Versed 1 mg I.V. was administered by Esha Núñez RN; for sedation; 16:21:19 Fentanyl 50 mcg I.V. was administered by Esha Núñez RN; for sedation ; 16:24:34 TORQUE DEVICE PLASTIC .038 ( TD01) opened to sterile field. 16:24:34 GLIDE CATHETER 5FR ANGLED 100cm (CG508) opened to sterile field. 16:24:35 GLIDE WIRE MERIT Angled 260cm ([id number]) opened to sterile field. 16:26:09 CHOICE PT Extra Support J 300cm guide wire ([id number]) opened to steril e field. 16:27:56 DAVIES 260 wire (I74543) opened to sterile field. 16:34:08 Cook RAABE 6FR. 90cm guide sheath opened to sterile field. 16:34:16 Sheath upsized to a 6 Fr Long. 16:35:35 Versed 1 mg I.V. was administered by Esha Núñez RN; for sedation; 16:35:42 Fentanyl 50 mcg I.V. was administered by sEha Núñez RN; for sedation ; 16:38:08 INFLATOR BasixTOUCH (IO2923) opened to sterile field. 16:38:09 SPIDER EMBOLIC PROTECTION DEVICE 4MM ([id number]) opened to sterile field. 16:39:23 Heparin Bolus 5000 units I.V. was administered by Esha Núñez RN; for antiplatelet therapy; 16:40:02 CXI SUPPORT .035 135 CM STR catheter (C34623) opened to sterile field. 16:47:00 Nitroglycerin IC/IA 200 mcg I.A. was administered by Saúl Rothman MD; used for procedure; 17:04:17 Inflate balloon Inflation number: 1 A CHOCOLATE 3.0 x 80 x 150 balloon ([id number]) was prepped and advanced across the Undefined1, then inflated to 14 PEACE for 0:34 (min:sec). 17:04:49 Nitroglycerin IC/IA 200 mcg I.A. was administered by Saúl Rothman MD; used for procedure; 17:07:58 Versed 1 mg I.V. was administered by Esha Núñez RN; for sedation; 17:08:11 Fentanyl 50 mcg I.V. was administered by Esha Núñez RN; for sedation ; 17:09:03 SHEATH 6FR Coy (UQC019) opened to sterile field. 17:10:29 Inflate balloon Inflation number: 2 A CHOCOLATE 4.0 x 80 x 135 balloon ([id number]) was prepped and advanced across the Undefined1, then inflated to 10 PEACE for 2:10 (min:sec). 17:17:42 EXOSEAL 6Fr (EX600) opened to sterile field. 17:26:21 Sheath removed intact; hemostasis achieved with Exoseal to the Right Femoral artery. 17:26:27 Procedure ended.(Physican Out) 17:26:37 Contrast amount:Isovue 300 95ml. 17:27:06 Fluoroscopy time 08.50 minutes. 17:27:11 Fluoroscopy dose: 281 mGy 17:27:11 Flurop Dose total: 281 17:27:13 Sharps counted by scrub and verified by R.N. 17:27:15 Insertion/operative site no bleeding no hematoma. 17:27:18 Post-op/insertion site Right Femoral artery dressed using a 4 x 4 and Tegaderm. 17:27:21 Post right femoral artery:stable 17:27:31 Post Procedure Pulses reassessed and unchanged 17:27:34 Post procedure instruction explained to patient.Patient verbalizes understanding. 17:27:34 Procedure and supply charges have been captured, reviewed, submitted an d are correct. 17:42:36 Report given to [facility]. 17:42:39 [facility] to [facility] with Bed. 17:43:11 Vital chart was stopped Intervention Summary Intervention Notes Time ActionType Lesion and Equipment Used Action# Pressure Duration Attributes 17:04:17 Inflate Undefined1 CHOCOLATE 3.0 x 1 14 00:34 balloon 80 x 150 balloon ([id number]) 17:10:29 Inflate Undefined1 CHOCOLATE 4.0 x 2 10 02:10 balloon 80 x 135 balloon ([id number]) Device Usage Item Name Manufacture Quantity Catalog Number [facility] Minimal Lot# / Charge Number Stock Stock Serial# Code ACIST Syringe Acist 1 33873 514201 406621 99791 8 20 (91538) [employer] Inc ACIST Hand Acist 1 05179 541061 573579 58960 3 5 Control (25402) [employer] Inc ACIST Manifold Acist 1 30558 912942 971368 11793 0 5 (50362) Medical Systems Inc Bag Decanter Microtek 1 2001S 964603 54473 00991 9 5 (2001S) Medical Inc. Sterile Cardinal 1 [id number] 633463 97492 4 5 Angiographic Pack Health Tegaderm 4 x 4 3M 1 1626W 606424 618381 60615 7 5 (1626W) SHEATH 5FR Terumo 1 HUC128 037191 650243 13263 0 5 Coy (QMQ262) Micropuncture VSI VSI VASCULAR 1 7266V 695404 04466 2 5 4FR kit SOLUTIONS DOC .035 wire Health Plotter Medical 1 E68654 136634 18729 3 5 (R51125) TUBING Contrast Merit 1 QJJ010X 898871 766507 87412 7 5 Injection High Medical Pressure (GPJ957S) Merit ULTRA BOLUS Merit 1 [id number] 603494 29549 4 5 FLUSH 5Fr 90CM Medical catheter ([id number]) TORQUE DEVICE [place] 1 TD01 947752 051501 10934 1 5 PLASTIC .038 ( Scientific TD01) GLIDE CATHETER Terumo 1 CG508 436116 79367 50080 7 4 5FR ANGLED 100cm (CG508) GLIDE WIRE MERIT Merit 1 [id number] 495882 031889 62333 6 5 [id number] Angled 260cm Medical ([id number]) CHOICE PT Extra [place] 1 [id number] 988422 366194 87518 2 5 [id number] Support J 300cm Scientific guide wire (7447564Y4) DAVIES 260 wire Health Plotter Medical 1 D41493 071305 24219 37710 1 5 9307412 (T65498) Cook RAABE 6FR. WIDIP 1 M55009 705981 57938 3 5 90cm guide sheath INFLATOR Merit 1 BW7542 529629 396559 66729 6 5 Getlenses.co[employer] (XJ4035) SPIDER EMBOLIC Medtronic 1 LWL8-ZA-048-320 488178 46106 6 5 PROTECTION DEVICE 5MM ([id number]) CXI SUPPORT .035 Cook Medical 1 N38238 144249 323677 78747 8 5 [id number] 135 CM STR catheter (W36790) CHOCOLATE 3.0 x Medtronic 1 [id number] O 825744 132478 47792 6 5 80 x 150 balloon TW ([id number]) SHEATH 6FR Terumo 1 KQE119 953606 049679 90065 3 40 Coy (SLG134) CHOCOLATE 4.0 x Medtronic 1 [id number] O 934671 971872 08791 7 5 80 x 135 balloon TW ([id number]) EXOSEAL 6Fr Cardinal 1 EX600 145616 350823 48125 2 10 [id number] (EX600) Health Signature Audit [place] Stage Time Signature Unsigned Intra-Procedure 11/28/2018 Cl 5:43:08 PM Sandra RT (R) (CV) Signatures Monitor : Cl Signature : Sandra RT Date : Time : [address] [address]
[~2018-11-26 07:37] MED LIST changes: -NORVASC10 MG; +NORVASC10 MG PO; -ZYLOPRIM100 MG; +ZYLOPRIM100 MG PO
[2018-11-26 08:11] LABS: BASOPHILS 0.2 % (0-2); EOSINOPHILS 3.1 % (0-7); HEMATOCRIT 36.6 % (36.0-48.0); HEMOGLOBIN 11.9 g/dL (12-16); IMMATURE GRANULOCYTES 0.5 % (0-5); LYMPHOCYTES 16.2 % (15-50); MCH 31.7 pg (26.0-34.0); MCHC 32.5 g/dL (31.0-37.0); MCV 97.6 fL (80.0-100.0); MEAN PLATELET VOLUME 9.6 fL (7.4-10.4); MONOCYTES 9.5 % (2-11); NEUTROPHILS 70.5 % (40-80); PLATELET COUNT 203 10x3/uL (130-400); RBC 3.75 10x6/uL (4.00-5.40); RDW 14.6 % (11.5-14.5); WBC 6.5 10x3/uL (4.8-10.8)
[2018-11-26 08:25] LABS: ANION GAP 11.6 mmol/L (8-16); CALCIUM 8.9 mg/dL (8.5-10.1); CARBON DIOXIDE 26.8 mmol/L (21.0-32.0); POTASSIUM - SERUM 4.4 mmol/L (3.5-5.1)
[2018-11-26 08:26] LABS: APTT 30.3 SECONDS (22.8-39.4); PROTIME 12.7 SECONDS (11.6-15.0)
[2018-11-26] MEDS ORDERED: HUMALOG 30100 UNITS/ SC (09:34)
[2018-11-26] MEDS ORDERED: TOUJEO SOL300 UNIT/1 (09:36)
[2018-11-26] MEDS ORDERED: PLAVIX75 MG PO (09:36)
[2018-11-26] MEDS ORDERED: REQUIP1 MG PO (09:37)
[2018-11-26] MEDS ORDERED: CARDURA2 MG PO (09:38)
[2018-11-26] MEDS ORDERED: PAXIL10 MG PO (09:38)
[2018-11-26] MEDS ORDERED: OS-CAL500 MG PO (09:39)
[2018-11-26 09:47] VITALS: BP 207/72; BMI 34.4
[2018-11-26] MEDS ORDERED: HYDROCODON-ACE1 EAC7 PO (15:37)
[2018-11-26 23:41] VITALS: BP 170/58; BMI 34.4
[2018-11-27] VITALS: BP 170/58
[2018-11-27] LABS: CKMB 5.3 U/L (0.0-3.6); CREATINE KINASE 65 UL (21-215)
[2018-11-27 00:13] LABS: TROPONIN-I 0.373 ng/mL (0.000-0.060)
[2018-11-27 04:00] VITALS: BP 163/52
[2018-11-27 06:27] LABS: CKMB 27.8 U/L (0.0-3.6); CREATINE KINASE 162 UL (21-215)
[2018-11-27 08:08] VITALS: BP 115/39
[2018-11-27 08:14] LABS: ANION GAP 17.2 mmol/L (8-16); CALCIUM 8.3 mg/dL (8.5-10.1); CARBON DIOXIDE 23.3 mmol/L (21.0-32.0)
[2018-11-27 08:28] LABS: BASOPHILS 0.2 % (0-2); EOSINOPHILS 0.1 % (0-7); HEMATOCRIT 34.3 % (36.0-48.0); HEMOGLOBIN 11.1 g/dL (12-16); IMMATURE GRANULOCYTES 0.3 % (0-5); LYMPHOCYTES 7.6 % (15-50); MCH 31.6 pg (26.0-34.0); MCHC 32.4 g/dL (31.0-37.0); MCV 97.7 fL (80.0-100.0); MEAN PLATELET VOLUME 10.2 fL (7.4-10.4); MONOCYTES 7.6 % (2-11); NEUTROPHILS 84.2 % (40-80); PLATELET COUNT 200 10x3/uL (130-400); POTASSIUM - SERUM 6.5 mmol/L (3.5-5.1); RBC 3.51 10x6/uL (4.00-5.40); RDW 14.7 % (11.5-14.5)
[2018-11-27 08:33] LABS: WBC 12.3 10x3/uL (4.8-10.8)
[2018-11-27 13:57] VITALS: Ht 167.6 cm; Wt 98.6 kg
[2018-11-27 14:22] LABS: CKMB 39.5 U/L (0.0-3.6)
[2018-11-27 14:25] LABS: CREATINE KINASE 235 UL (21-215)
[2018-11-27 14:27] LABS: TROPONIN-I 10.088 ng/mL (0.000-0.060)
[2018-11-27 15:37] VITALS: BP 171/59
--- NOTE | 2018-11-27 21:11 | OP ---
PATIENT NAME: SAJAN BONNER MEDICAL RECORD: [id number] :50 LOCATION:D.M2 D.2138 ADMISSION DATE:11/27/18 SURGEON: AILEEN GUIDRY MD DATE OF OPERATION: 11/26/2018 PREOPERATIVE DIAGNOSES: End-stage renal disease, dependence on hemodialysis, hypertension, diabetes, and coronary artery disease, thrombosed right arteriovenous fistula and history of ischemic steal, right hand and forearm secondary to complications from the right arm arteriovenous graft. POSTOPERATIVE DIAGNOSES: End-stage renal disease, dependence on hemodialysis, hypertension, diabetes, and coronary artery disease, thrombosed right arteriovenous fistula and history of ischemic steal, right hand and forearm secondary to complications from the right arm arteriovenous graft. OPERATION PERFORMED: Open revision of AV graft with thrombectomy and fistulogram with venous anastomotic stenosis and balloon angioplasty. SURGEON: Aileen Guidry MD ANESTHESIA: General with LMA per RESOURCE MANAGEMENT SPECIALIST. REFERRING PHYSICIAN: Isidro Leger MD PREOPERATIVE NOTE: Ms. Bonner is a very nice 68-year-old white female patient from [facility]. She lives in [place], [place] and she is on chronic hemodialysis in [place]. Last month, I implanted a PTFE AV graft and a proximal brachial artery to proximal basilic vein, loop configuration in the right upper arm. Postoperatively, she suffered an ischemic steal syndrome and that required ligation of her AV graft. 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 As a result, she has weakness and deformity in that arm secondary to polio as a child and she does not want to have to use her left arm, her good arm for dialysis access if possible. For now, she has been dialyzed with a right internal jugular tunneled dialysis catheter. I am returning her to the operating room now with plans to reopen the right arm AV graft and extend her arterial origin way up on to the axillary artery. Hopefully, such arterial proximalization will prevent steal syndrome. With the patient under general anesthesia in supine position with the right arm abducted, she was prepped and draped in sterile manner. I made an axillary incision and exposed the axillary artery at the level much higher than it had then the initial anastomosis to the proximal brachial artery. The artery was dissected from surrounding structures and controlled with Silastic loops. I then reopened the upper arm incision and exposed the arterial limb of PTFE. I transected it and oversewed the arterial side with running 6-0 Prolene and then made another incision on the lateral aspect of the arm and exposed the arterial limb of the graft there and the Prolene suture or ligature, which was used to tie the graft off. That segment of PTFE was then excised. I used a 4-Omani Samuel embolectomy catheter to remove clot from the remaining PTFE loop in the venous limb and anastomosis and then flushed the graft with heparinized saline. I anastomosed it end-to-end to a new piece of Propaten PTFE that was done with running 6-0 Prolene and the suture line was treated with BioGlue. The graft was then irrigated with heparinized saline and the suture line found to be watertight. Graft was clamped. OPERATIVE REPORT [id number] SAJAN BONNER S Note, there was some oily fluid collected around the upper portion of the graft and the graft was not well fixed within the tunnel. I sent the excised portion of the PTFE graft for culture and also swabbed the area for aerobic and anaerobic cultures and sensitivity. It was not my clinical impression that this graft was infected; however. The new segment of graft was then put back in the old tunnel and then tunnelled further, more proximally up into the axilla where it was shortened and beveled and anastomosed end-to-side to the axillary artery with the axillary artery flushed proximally and distally with heparinized saline. No systemic anticoagulation was used. The patient is on Plavix and her Plavix was not interrupted preoperatively. When the anastomosis was completed and the occluding loops and clamps released, excellent flow developed within the AV graft. I then used a micropuncture needle wire and cannula in the venous limb to perform a fistulogram. This revealed a 99% stenosis at the venous anastomosis. I then placed a 6-Omani introducer and over a 0.035 Glidewire used a 7 mm x 40 mm angioplasty balloon and successfully dilated the area of stenosis with essentially 0% residual. During this process when the balloon was inflated, contrast was injected and the arterial anastomosis was visualized and this was noted to be very satisfactory angiographically and there was good flow in the axillary artery distal to the anastomosis. Repeat contrast injection then demonstrated the result of the venous anastomotic angioplasty to be satisfactory. The balloon and wire was removed. The 6-Omani introducer was removed and the puncture site closed with 6-0 Prolene and some additional BioGlue. Continuous wave handheld Doppler examination demonstrated flow in the brachial artery distal to the initial brachial artery anastomosis and also there was good pulsatile flow in the ulnar artery at the wrist. The radial artery at the wrist did not exhibit Doppler flow. The hand remained pink and appears to be well vascularized. The patient's wounds were irrigated with Ancef/gentamicin solution and infiltrated with 0.25% Marcaine without epinephrine. No drain was used. The wounds were closed with interrupted inverted 3-0 Vicryl and running intracuticular 4-0 Monocryl and Dermabond glue. They were dressed with Maxorb Ag, Tegaderm, and Cavilon skin prep. The patient was then awakened and in stable condition taken to the recovery room. Blood loss during the operation was trivial about 50 cc. It was unreplaced. Sponges, instruments, and needles were accounted for. No drain was used and no surgical specimen was submitted for histopathology. PLAN: I plan for the patient to go home from the outpatient department later today, although I have talked with her daughter and I have volunteered that if she feels the patient needs to stay in overnight observation then that is available to her as after all she does live quite a long ways from the hospital and the patient has been very anxious about the possibility of the steal syndrome recurring. She is given a prescription for [place] 5/325 to take 1 or 2 p.o. q.4 hours p.r.n. pain and she is to return to see me in my office next week on , she will continue her same home medications including Plavix and continue her routine dialysis schedule, her same diet, and home medications, etc. I plan and hope that the patient's AV graft will be able to be used for dialysis access in probably 2 or 3 weeks. TRANSINT:[id number] Voice Confirmation ID: [id number] DOCUMENT ID: [id number] OPERATIVE REPORT [id number] SAJAN BONNER CC: Amelia Browne AILEEN GUIDRY MD at 2111 CC: TABITHA KEATING [phone] DICTATION DATE: 11/26/18 1624 MOTOR MAN: 11/26/18 2258 ADM IN [facility] [address] [place] [address]
[2018-11-28] VITALS: BP 121/40
[2018-11-28 04:00] VITALS: BP 119/41
[2018-11-28 07:49] VITALS: BP 107/47
[2018-11-28 11:00] VITALS: BP 120/41
[2018-11-28 12:33] LABS: BASOPHILS 0.1 % (0-2); EOSINOPHILS 1.7 % (0-7); HEMOGLOBIN 8.9 g/dL (12-16); IMMATURE GRANULOCYTES 0.1 % (0-5); LYMPHOCYTES 12.3 % (15-50); MCH 32.2 pg (26.0-34.0); MCHC 32.8 g/dL (31.0-37.0); MCV 98.2 fL (80.0-100.0); MEAN PLATELET VOLUME 9.9 fL (7.4-10.4); MONOCYTES 13.2 % (2-11); NEUTROPHILS 72.6 % (40-80); PLATELET COUNT 165 10x3/uL (130-400); RDW 15.1 % (11.5-14.5)
[2018-11-28 12:42] LABS: ANION GAP 15.2 mmol/L (8-16); APTT 28.3 SECONDS (22.8-39.4); CARBON DIOXIDE 25.6 mmol/L (21.0-32.0); CREATININE - SERUM 4.9 mg/dL (0.6-1.3); INR 1.11 (0.85-1.17); POTASSIUM - SERUM 4.8 mmol/L (3.5-5.1); PROTIME 13.8 SECONDS (11.6-15.0)
[2018-11-28 12:44] LABS: HEMATOCRIT 27.1 % (36.0-48.0); RBC 2.76 10x6/uL (4.00-5.40); WBC 7.1 10x3/uL (4.8-10.8)
[2018-11-28 20:00] VITALS: BP 122/62
[2018-11-29] VITALS (7 sets, daily range): BP systolic 109–144; BP diastolic 40–48
[2018-11-29 05:17] LABS: HEPATITIS BE ANTIBODY Negative (Negative)
[2018-11-29 06:18] LABS: HEPATITIS BE ANTIGEN Negative (Negative)
--- NOTE | 2018-11-29 09:48 | OP ---
PATIENT NAME: SAJAN BONNER MEDICAL RECORD: [id number] :50 LOCATION:D.M2 D.2138 ADMISSION DATE:11/27/18 SURGEON: AILEEN GUIDRY MD DATE OF OPERATION: 11/27/2018 She is an inpatient, referred by Dr. Copeland. PREOPERATIVE DIAGNOSES: End-stage renal disease, dependence on hemodialysis, coronary artery disease with postop non-Q-wave myocardial infarction yesterday postop implantation of AV graft right arm. Additional diagnosis today is recurrent steal syndrome with ischemic pain symptoms, right hand. POSTOPERATIVE DIAGNOSES: End-stage renal disease, dependence on hemodialysis, coronary artery disease with postop non-Q-wave myocardial infarction yesterday postop implantation of AV graft right arm. Additional diagnosis today is recurrent steal syndrome with ischemic pain symptoms, right hand. OPERATION PERFORMED: Ligation of AV graft, right arm. SURGEON: Aileen Guidry MD ANESTHESIA: Local 1% lidocaine without epinephrine, plus minimal IV sedation and monitoring per SEWAGE TREATMENT PLANT OPERATOR. PREOPERATIVE NOTE: Ms. Bonner is a 68-year-old white female, hypertensive, diabetic, with coronary artery disease and end-stage renal disease, on chronic hemodialysis via a right IJ vein TDC. Last month, I implanted a PTFE AV graft in her right arm and she had steal syndrome very acutely within the first week or 10 days. She was returned to the operating room by Dr. Cole and the graft was ligated. The patient has remained catheter dependent since that time. She still needs long-term access. She is very reluctant to have anything done in her left arm. 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 She has agreed to another attempt to have a fistula or AV graft in her right arm. I had recommended that the arterial inflow be proximalized well up on to the axillary artery thinking that would cause less in the way of steal symptoms. She, however, had worsening of pain in her right hand postop and actually even the afternoon or evening of surgery on 11/26 had a myocardial infarction. Earlier on 11/27, she had a heart cath and coronary artery stents implanted. She is on Plavix and will be for the next month. She is stable at this time enough to be returned to the operating room for ligation of her recently revised AV graft under local with minimal sedation and monitoring per SEWAGE TREATMENT PLANT OPERATOR. DESCRIPTION OF PROCEDURE: Under IV sedation and monitoring per SEWAGE TREATMENT PLANT OPERATOR, the patient was placed in supine position, prepped and draped in sterile manner. Skin and subcutaneous tissues were infiltrated with 1% lidocaine without epinephrine. A transverse incision was placed across the venous limb of the graft. This incision was about half an inch in length. The subcutaneous tissues were sharply and bluntly to expose the underlying PTFE graft. This was closed with 2 Hemoclips. The arm was then examined with continuous wave handheld Doppler and flow in the ulnar artery and palmar arch was definitely improved by Doppler from preoperative findings and there was still no identifiable Doppler flow at the wrist and the radial artery. There is no apparent ischemia of the hand either pre or postop. There being good capillary refill and the hand only minimally cooler than the left and generally pink. The OPERATIVE REPORT [id number] SAJAN BONNER S patient's preop pain symptoms had been predominantly right fifth finger pain and pain on the medial aspect of the forearm. The wound was closed with running 4-0 Prolene suture and sterile dressings applied, and she was then returned to her room in stable condition. PLAN: She will continue on Plavix of course and we will delay any additional dialysis access surgery for probably 3-6 months to be certain that her risk with regard to coronary complications is minimized. She will probably eventually be returned to the operating room for implantation of an AV graft in her thigh as she is understandably still reluctant to have anything done in her left arm. There was no blood loss during the procedure. Sponges, instruments, and needles were accounted for. No drain was used and no surgical specimen was submitted for histopathology. TRANSINT:[id number] Voice Confirmation ID: [id number] DOCUMENT ID: [id number] AILEEN GUIDRY MD at 0948 CC: CRISTIAN COPELAND [id number] DICTATION DATE: 11/28/18 0939 CANE FLUME CHUTE OPERATOR: 11/28/18 [address] [facility] [place] [address] [place] [address]
[2018-11-29] MEDS ORDERED: ASPIRIN81 MG PO (14:09)
--- NOTE | 2018-11-29 14:59 | MORECARE ---
CASE MANAGEMENT DISCHARGE SUMMARY PATIENT: SAJAN BONNER S UNIT: [id number] ADM DATE: 11/27/18 AGE: 68 : 50 SEX: F ROOM/BED: D.2138 AUTHOR: SHANKAR FERGUSON PHYSICIAN: REFERRING PHYSICIAN: CRISTIAN COPELAND MD DATE OF SERVICE: 11/29/18 Discharge Plan Patient Name: SAJAN BONNER [facility] [facility] 1950 Planned Disposition: Home Anticipated Discharge Date: 11/30/18 Discharge Date: Expected LOS: 3 Initial Reviewer: [email or web address] Initial Review Date: 11/29/2018 Generated: 11/29/18 3:59 pm DCPIA - Discharge Planning Initial Assessment Updated by [email or web address]: Oscar Grace on 11/29/18 2:58 pm * Is the patient Alert and Oriented? Yes * How many steps to enter\exit or inside your home? RAMP * PCP DR. BELL, [place] * Pharmacy [facility] IN [place] * Preadmission Environment Home with Family * ADLs Independent * Equipment Bedside Commode CPAP Rolling Walker Shower Chair Walker Wheelchair * Other Equipment PROVIDER - [facility] IN [place] * List name and contact numbers for known caregivers / representatives who currently or will assist patient after discharge: JOSE LUIS HA, R, * Verbal permission to speak to the caregivers and representatives has been obtained from the patient. Yes * Community resources currently utilized Other * Please name any agencies selected above. OUTPATIENT DIALYSIS, [facility], MWF, 1130AM, [employer] * Additional services required to return to the preadmission environment? No * Can the patient safely return to the preadmission environment? Yes * Has this patient been hospitalized within the prior 30 days at any hospital? No Patient Name: SAJAN BONNER Page [phone] at 9571 All edits/amendments must be made on the electronic document DICTATION DATE: 11/29/18 7917 AUDIO VIDEO TECH: ASHER 11/29/18 3485 RPT#: [id number] DC DATE: STATUS: ADM IN [address] [place] [address] END OF REPORT
--- NOTE | 2018-11-29 15:09 | MORECARE ---
CASE MANAGEMENT DISCHARGE SUMMARY PATIENT: SAJAN BONNER UNIT: [id number] ADM DATE: 11/27/18 AGE: 68 : 50 SEX: F ROOM/BED: D.9507 AUTHOR: MARTY,DOC PHYSICIAN: REFERRING PHYSICIAN: CRISTIAN COPELAND MD DATE OF SERVICE: 11/29/18 Discharge Plan Patient Name: SAJAN BONNER Facility: [facility]:[place] : 1950 Planned Disposition: Home Anticipated Discharge Date: 11/30/18 Discharge Date: Expected LOS: 3 Initial Reviewer: [email or web address] Initial Review Date: 11/29/2018 Generated: 11/29/18 4:09 pm Comments DCP- Discharge Planning Updated by [id number]: Oscar Grace on 11/29/18 2:[address] Patient Name: SAJAN BONNER Encounter No: [id number] : 1950 Primary Insurance: MEDICARE A & B Anticipated DC Date: 11-30-2018 Planned Disposition: Home DISCHARGE PLANNING NOTE: CM MET WITH PT AND DAUGHTER IN ROOM TO DISCUSS DISCHARGE PLANNING AND NEEDS. SAJAN BONNER provided verbal consent to discuss current and ongoing needs with/in the presence of: DAUGHTER, JOSE LUIS. PT REPORTS LIVING AT HOME INDEPENDENTLY WITH HER SPOUSE. PT HAS "EVERYTHING" AT HOME; PT REPORTS HAVING CPAP, CANE, WALKER, ROLLING WALKER, BEDSIDE COMMODE, WHEELCHAIR AND SHOWER CHAIR. PT GETS MEDICAL EQUIPMENT FROM [facility] IN [place]. PT HAS NO OUTSIDE SERVICES ASSISTING IN THE HOME. CM DISCUSSED AVAILABILITY OF HOME HEALTH, REHAB SERVICES AND MEDICAL EQUIPMENT. PT AND DAUGHTER WERE THINKING OF INPATIENT REHAB AT [facility], BUT THINK PT WILL GO HOME TOMORROW WITH ASSISTANCE OF FAMILY. PT'S DAUGHTER REPORTS THAT SHE THINKS PT WILL BE FINE TOMORROW AND THAT IF SHE DOES NOT GET STRONGER, SHE WILL CONTACT DR. BELL REGARDING POSSIBLE OUTPATIENT REHAB IF NEEDED. PT CANNOT RECEIVE HOME HEALTH THEY HAVE BEEN THROUGH THIS BEFORE AND THERE ARE NO PROVIDERS IN THEIR AREA. PT DENIES DISCHARGE NEEDS, REPORTS HER DAUGHTER WILL PICK HER UP FOR DISCHARGE HOME TOMORROW MORNING. PT REPORTS NURSE PRACTITIONER PRATEEK TOLD HER SHE COULD STAY TILL TOMORROW MORNING AND PT FEELS SHE WILL BE STRONGER TOMORROW MORNING; PT REPORTS SHE IS NORMALLY "WIPED OUT" AFTER DIALYSIS AND DOES NOT GET HER STRENGTH BACK UNTIL THE FOLLOWING MORNING. PT STATES THAT TONIGHT SHE HAS TO HAVE DIALYSIS BEFORE DISCHARGE AND IT IS A THREE [address]IVE HOME, IT WOULD BE LATE AND PT WOULD BE WEAK. IMPORTANT MESSAGE FROM MEDICARE PROVIDED AND EXPLAINED. AUDIO VISUAL DESIGN ENGINEER NURSE INFORMED THAT PT WILL DISCHARGE HOME TOMORROW MORNING. CM WAS ADVISED BY AUDIO VISUAL DESIGN ENGINEER NURSE THAT IS INDICATED POSSIBILITY IN THE DISCHARGE ORDER. PT TO DISCHARGE HOME TOMORROW MORNING, 11-30-18, WITH ASSISTANCE OF FAMILY, DENIES NEEDS AT THIS TIME. Oscar Grace, CASE MANAGEMENT DCPIA - Discharge Planning Initial Assessment Updated by [email or web address]: Oscar Grace on 11/29/18 2:58 pm * Is the patient Alert and Oriented? Yes * How many steps to enter\\exit or inside your home? RAMP * PCP DR. BELL, [place] * Pharmacy [facility] IN [place] * Preadmission Environment Home with Family * ADLs Independent * Equipment Bedside Commode CPAP Rolling Walker Shower Chair Walker Wheelchair * Other Equipment PROVIDER - [facility] IN [place] * List name and contact numbers for known caregivers / representatives who currently or will assist patient after discharge: JOSE LUIS MALDONADOEN, R, * Verbal permission to speak to the caregivers and representatives has been obtained from the patient. Yes * Community resources currently utilized Other * Please name any agencies selected above. OUTPATIENT DIALYSIS, [facility], MWF, 1130AM, [employer] * Additional services required to return to the preadmission environment? No * Can the patient safely return to the preadmission environment? Yes * Has this patient been hospitalized within the prior 30 days at any hospital? No Last DP export: 11/29/18 1:59 p Patient Name: SAJAN BONNER Page [phone] at 1509 All edits/amendments must be made on the electronic document DICTATION DATE: 11/29/181508 SHAPER MACHINE HAND: ASHER 11/29/18 150 RPT#: [id number] DC DATE: STATUS: ADM IN [facility] [address] [place] [address] END OF REPORT
[2018-11-30 03:55] VITALS: BP 142/49
[2018-11-30 10:41] VITALS: BP 134/51
[2018-11-30 11:45] LABS: BASOPHILS 0.3 % (0-2); EOSINOPHILS 2.7 % (0-7); HEMATOCRIT 25.2 % (36.0-48.0); HEMOGLOBIN 8.3 g/dL (12-16); IMMATURE GRANULOCYTES 0.4 % (0-5); MCH 31.8 pg (26.0-34.0); MCHC 32.9 g/dL (31.0-37.0); MCV 96.6 fL (80.0-100.0); MEAN PLATELET VOLUME 9.9 fL (7.4-10.4); MONOCYTES 11.5 % (2-11); NEUTROPHILS 76.1 % (40-80); PLATELET COUNT 162 10x3/uL (130-400); RBC 2.61 10x6/uL (4.00-5.40); RDW 14.4 % (11.5-14.5); WBC 6.8 10x3/uL (4.8-10.8)
[2018-11-30 12:13] LABS: ANION GAP 11.1 mmol/L (8-16); CALCIUM 7.8 mg/dL (8.5-10.1); CREATININE - SERUM 4.8 mg/dL (0.6-1.3); POTASSIUM - SERUM 4.1 mmol/L (3.5-5.1)
[2018-11-30 17:11] VITALS: BP 128/54
--- NOTE | 2018-11-30 17:57 | MORECARE ---
CASE MANAGEMENT DISCHARGE SUMMARY PATIENT: SAJAN BONNER UNIT: [id number] ADM DATE: 11/27/18 AGE: 68 : 50 SEX: F ROOM/BED: D.1314 AUTHOR: MARTYDOC PHYSICIAN: REFERRING PHYSICIAN: CRISTIAN COPELAND MD DATE OF SERVICE: 11/30/18 Discharge Plan Patient Name: SAJAN BONNER [facility]:[place] : 1950 Planned Disposition: Home Anticipated Discharge Date: 11/30/18 Discharge Date: Expected LOS: 3 Initial Reviewer: [id number] Initial Review Date: 11/29/2018 Generated: 11/30/18 6:57 pm Comments DCP- Discharge Planning Updated by [id number]: Pamela Blanco on 11/30/18 4:[address] LATE ENTRY 1230 PATIENT'S DISCHARGE HELD TODAY. SHE FEELS WORSE AND IS COMPLAINING OF DIZZINES. CBC AND BMP CHECKED. HCT DROPPED FROM 34.3 - 25.2 IN THREE DAYS. MONITOR PATIENT. CM TO FOLLOW. DCP- Discharge Planning Updated by [email or web address]: Oscar Grace on 11/29/18 2:[address] Patient Name: SAJAN BONNER Encounter No: [id number] : 1950 Primary Insurance: MEDICARE A & B Anticipated DC Date: 11-30-2018 Planned Disposition: Home DISCHARGE PLANNING NOTE: CM MET WITH PT AND DAUGHTER IN ROOM TO DISCUSS DISCHARGE PLANNING AND NEEDS. SAJAN BONNER provided verbal consent to discuss current and ongoing needs with/in the presence of: DAUGHTER, JOSE LUIS. PT REPORTS LIVING AT HOME INDEPENDENTLY WITH HER SPOUSE. PT HAS "EVERYTHING" AT HOME; PT REPORTS HAVING CPAP, CANE, WALKER, ROLLING WALKER, BEDSIDE COMMODE, WHEELCHAIR AND SHOWER CHAIR. PT GETS MEDICAL EQUIPMENT FROM [facility] [place] IN [place]. PT HAS NO OUTSIDE SERVICES ASSISTING IN THE HOME. CM DISCUSSED AVAILABILITY OF HOME HEALTH, REHAB SERVICES AND MEDICAL EQUIPMENT. PT AND DAUGHTER WERE THINKING OF INPATIENT REHAB AT [facility], BUT THINK PT WILL GO HOME TOMORROW WITH ASSISTANCE OF FAMILY. PT'S DAUGHTER REPORTS THAT SHE THINKS PT WILL BE FINE TOMORROW AND THAT IF SHE DOES NOT GET STRONGER, SHE WILL CONTACT DR. BELL REGARDING POSSIBLE OUTPATIENT REHAB IF NEEDED. PT CANNOT RECEIVE HOME HEALTH THEY HAVE BEEN THROUGH THIS BEFORE AND THERE ARE NO PROVIDERS IN THEIR AREA. PT DENIES DISCHARGE NEEDS, REPORTS HER DAUGHTER WILL PICK HER UP FOR DISCHARGE HOME TOMORROW MORNING. PT REPORTS NURSE PRACTITIONER PRATEEK TOLD HER SHE COULD STAY TILL TOMORROW MORNING AND PT FEELS SHE WILL BE STRONGER TOMORROW MORNING; PT REPORTS SHE IS NORMALLY "WIPED OUT" AFTER DIALYSIS AND DOES NOT GET HER STRENGTH BACK UNTIL THE FOLLOWING MORNING. PT STATES THAT TONIGHT SHE HAS TO HAVE DIALYSIS BEFORE DISCHARGE AND IT IS A [address] HOME, IT WOULD BE LATE AND PT WOULD BE WEAK. IMPORTANT MESSAGE FROM MEDICARE PROVIDED AND EXPLAINED. AGRICULTURE DEPARTMENT CHAIR NURSE INFORMED THAT PT WILL DISCHARGE HOME TOMORROW MORNING. CM WAS ADVISED BY AGRICULTURE DEPARTMENT CHAIR NURSE THAT IS INDICATED POSSIBILITY IN THE DISCHARGE ORDER. PT TO DISCHARGE HOME TOMORROW MORNING, 11-30-18, WITH ASSISTANCE OF FAMILY, DENIES NEEDS AT THIS TIME. Oscar Grace, CASE MANAGEMENT DCPIA - Discharge Planning Initial Assessment Updated by [email or web address]: Oscar Grace on 11/29/18 2:58 pm * Is the patient Alert and Oriented? Yes * How many steps to enter\\exit or inside your home? RAMP * PCP DR. BELL, [place] * Pharmacy [facility] IN [place] * Preadmission Environment Home with Family * ADLs Independent * Equipment Bedside Commode CPAP Rolling Walker Shower Chair Walker Wheelchair * Other Equipment PROVIDER - [facility] [place] IN [place] * List name and contact numbers for known caregivers / representatives who currently or will assist patient after discharge: JOSE LUIS BONNER, DTR, * Verbal permission to speak to the caregivers and representatives has been obtained from the patient. Yes * Community resources currently utilized Other * Please name any agencies selected above. OUTPATIENT DIALYSIS, [facility], MWF, 1130AM, [employer] * Additional services required to return to the preadmission environment? No * Can the patient safely return to the preadmission environment? Yes * Has this patient been hospitalized within the prior 30 days at any hospital? No Coverage Notice Reviewer: [id number] - Oscar Grace Notice Issued Date-Time: 11/29/2018 14:15 Notice Type: IM Discharge Notice Notice Delivered To: Family Member Relationship to Patient: Daughter Baseball Inspector And Repairer Name: JOSE LUIS BONNER Delivery Method: HAND - Hand Delivered Jazmin Days: Prior Verbal Notification: Recipient Understood Notice: Yes Recipient Signature: Yes Med Rec Note Co-signed by Attending: Coverage Notice Comment: Last DP export: 11/29/18 2:09 p Patient Name: SAJAN BONNER Page [phone] at 1757 All edits/amendments must be made on the electronic document DICTATION DATE: 11/30/181755 PROCESS INSPECTOR: ASHER 11/30/181755 RPT#: [id number] DC DATE: STATUS: ADM IN [facility] [address] [place] [address] END OF REPORT
[2018-11-30 20:30] VITALS: BP 131/50
[2018-12-01 04:30] VITALS: BP 144/52
[2018-12-01 09:18] VITALS: BP 141/55
[2018-12-01 14:29] VITALS: BP 148/56
--- NOTE | 2018-12-01 17:46 | MORECARE ---
CASE MANAGEMENT DISCHARGE SUMMARY PATIENT: SAJAN BONNER UNIT: [id number] ADM DATE: 11/27/18 AGE: 68 : 50 SEX: F ROOM/BED: D.4528 AUTHOR: MARTY,DOC PHYSICIAN: REFERRING PHYSICIAN: CRISTIAN COPELAND MD DATE OF SERVICE: 12/01/18 Discharge Plan Patient Name: SAJAN BONNER Facility[facility]:[place] : 1950 Planned Disposition: Home Anticipated Discharge Date: 11/30/18 Discharge Date: Expected LOS: 3 Initial Reviewer: [email or web address] Initial Review Date: 11/29/2018 Generated: 12/01/18 6:46 pm Comments DCP- Discharge Planning Updated by [email or web address]: Pamela Blanco on 12/01/18 4:[address] DISCHARGE PLAN IS NOW FOR ACUTE REHAB AT [facility] IN [place], [place]. DCP- Discharge Planning Updated by [email or web address]: Pamela Blanco on 11/30/18 4:[address] LATE ENTRY 1230 PATIENT'S DISCHARGE HELD TODAY. SHE FEELS WORSE AND IS COMPLAINING OF DIZZINES. CBC AND BMP CHECKED. HCT DROPPED FROM 34.3 - 25.2 IN THREE DAYS. MONITOR PATIENT. CM TO FOLLOW. DCP- Discharge Planning Updated by [email or web address]: Oscar Grace on 11/29/18 2:[address] Patient Name: SAJAN BONNER Encounter No: [id number] : 1950 Primary Insurance: MEDICARE A & B Anticipated DC Date: 11-30-2018 Planned Disposition: Home DISCHARGE PLANNING NOTE: CM MET WITH PT AND DAUGHTER IN ROOM TO DISCUSS DISCHARGE PLANNING AND NEEDS. SAJAN BONNER provided verbal consent to discuss current and ongoing needs with/in the presence of: DAUGHTER, JOSE LUIS. PT REPORTS LIVING AT HOME INDEPENDENTLY WITH HER SPOUSE. PT HAS "EVERYTHING" AT HOME; PT REPORTS HAVING CPAP, CANE, WALKER, ROLLING WALKER, BEDSIDE COMMODE, WHEELCHAIR AND SHOWER CHAIR. PT GETS MEDICAL EQUIPMENT FROM [facility] IN [place]. PT HAS NO OUTSIDE SERVICES ASSISTING IN THE HOME. CM DISCUSSED AVAILABILITY OF HOME HEALTH, REHAB SERVICES AND MEDICAL EQUIPMENT. PT AND DAUGHTER WERE THINKING OF INPATIENT REHAB AT [facility], BUT THINK PT WILL GO HOME TOMORROW WITH ASSISTANCE OF FAMILY. PT'S DAUGHTER REPORTS THAT SHE THINKS PT WILL BE FINE TOMORROW AND THAT IF SHE DOES NOT GET STRONGER, SHE WILL CONTACT DR. BELL REGARDING POSSIBLE OUTPATIENT REHAB IF NEEDED. PT CANNOT RECEIVE HOME HEALTH THEY HAVE BEEN THROUGH THIS BEFORE AND THERE ARE NO PROVIDERS IN THEIR AREA. PT DENIES DISCHARGE NEEDS, REPORTS HER DAUGHTER WILL PICK HER UP FOR DISCHARGE HOME TOMORROW MORNING. PT REPORTS NURSE PRACTITIONER PRTAEEK TOLD HER SHE COULD STAY TILL TOMORROW MORNING AND PT FEELS SHE WILL BE STRONGER TOMORROW MORNING; PT REPORTS SHE IS NORMALLY "WIPED OUT" AFTER DIALYSIS AND DOES NOT GET HER STRENGTH BACK UNTIL THE FOLLOWING MORNING. PT STATES THAT TONIGHT SHE HAS TO HAVE DIALYSIS BEFORE DISCHARGE AND IT IS A [address] HOME, IT WOULD BE LATE AND PT WOULD BE WEAK. IMPORTANT MESSAGE FROM MEDICARE PROVIDED AND EXPLAINED. WEIGHT CONTROL ENGINEER NURSE INFORMED THAT PT WILL DISCHARGE HOME TOMORROW MORNING. CM WAS ADVISED BY WEIGHT CONTROL ENGINEER NURSE THAT IS INDICATED POSSIBILITY IN THE DISCHARGE ORDER. PT TO DISCHARGE HOME TOMORROW MORNING, 11-30-18, WITH ASSISTANCE OF FAMILY, DENIES NEEDS AT THIS TIME. Oscar Grace, CASE MANAGEMENT DCPIA - Discharge Planning Initial Assessment Updated by [email or web address]: Oscar Grace on 11/29/18 2:58 pm * Is the patient Alert and Oriented? Yes * How many steps to enter\\exit or inside your home? RAMP * PCP DR. BELL, [place] * Pharmacy [facility] IN [place] * Preadmission Environment Home with Family * ADLs Independent * Equipment Bedside Commode CPAP Rolling Walker Shower Chair Walker Wheelchair * Other Equipment PROVIDER - [facility] IN [place] * List name and contact numbers for known caregivers / representatives who currently or will assist patient after discharge: JOSE LUIS BONNER DTR, * Verbal permission to speak to the caregivers and representatives has been obtained from the patient. Yes * Community resources currently utilized Other * Please name any agencies selected above. OUTPATIENT DIALYSIS, [facility], MWF, 1130AM, [employer] * Additional services required to return to the preadmission environment? No * Can the patient safely return to the preadmission environment? Yes * Has this patient been hospitalized within the prior 30 days at any hospital? No Coverage Notice Reviewer: [id number] Cherry Grace Notice Issued Date-Time: 11/29/2018 14:15 Notice Type: IM Discharge Notice Notice Delivered To: Family Member Relationship to Patient: Daughter Knit Goods Press Hand Name: JOSE LUIS BONNER Delivery Method: HAND - Hand Delivered Jazmin Days: Prior Verbal Notification: Recipient Understood Notice: Yes Recipient Signature: Yes Med Rec Note Co-signed by Attending: Coverage Notice Comment: Last DP export: 11/30/18 4:57 p Patient Name: SAJAN BONNER Page 53581 at 1746 All edits/amendments must be made on the electronic document DICTATION DATE: 12/01/181744 LOGGING TRACTOR OPERATOR SWAMP: ASHER 12/01/181744 RPT#: [id number] DC DATE: STATUS: ADM IN [facility] [address] [place] [address] END OF REPORT
--- NOTE | 2018-12-01 18:07 | MORECARE ---
CASE MANAGEMENT DISCHARGE SUMMARY PATIENT: SAJAN BONNER UNIT: [id number] ADM DATE: 11/27/18 AGE: 68 : 50 SEX: F ROOM/BED: D.4984 AUTHOR: MARTY,DOC PHYSICIAN: REFERRING PHYSICIAN: CRISTIAN COPELAND MD DATE OF SERVICE: 12/01/18 Discharge Plan Patient Name: SAJAN BONNER Facility: [facility]:[place] : 1950 Planned Disposition: Home Anticipated Discharge Date: 11/30/18 Discharge Date: Expected LOS: 3 Initial Reviewer: [id number] Initial Review Date: 11/29/2018 Generated: 12/01/18 7:07 pm Comments DCP- Discharge Planning Updated by [id number]: Pamela Blanco on 12/01/18 5:[address] TC TO [facility] IN [place]. SPOKE WITH [facility] ON THE ACUTE REHAB UNIT AT [phone]. FAXED REFERRAL TO [facility] FOR REVIEW IN THE AM. FAX [phone]. DCP- Discharge Planning Updated by [id number]: Pamela Blanco on 12/01/18 4:[address] DISCHARGE PLAN IS NOW FOR ACUTE REHAB AT [facility] IN [place], [place]. DCP- Discharge Planning Updated by [id number]: Pamela Blanco on 11/30/18 4:[address] LATE ENTRY 1230 PATIENT'S DISCHARGE HELD TODAY. SHE FEELS WORSE AND IS COMPLAINING OF DIZZINES. CBC AND BMP CHECKED. HCT DROPPED FROM 34.3 - 25.2 IN THREE DAYS. MONITOR PATIENT. CM TO FOLLOW. DCP- Discharge Planning Updated by [email or web address]: Oscar Grace on 11/29/18 2:[address] Patient Name: SAJAN BONNER Encounter No: [id number] : 1950 Primary Insurance: MEDICARE A & B Anticipated DC Date: 11-30-2018 Planned Disposition: Home DISCHARGE PLANNING NOTE: CM MET WITH PT AND DAUGHTER IN ROOM TO DISCUSS DISCHARGE PLANNING AND NEEDS. SAJAN BONNER provided verbal consent to discuss current and ongoing needs with/in the presence of: DAUGHTER, JOSE LUIS. PT REPORTS LIVING AT HOME INDEPENDENTLY WITH HER SPOUSE. PT HAS "EVERYTHING" AT HOME; PT REPORTS HAVING CPAP, CANE, WALKER, ROLLING WALKER, BEDSIDE COMMODE, WHEELCHAIR AND SHOWER CHAIR. PT GETS MEDICAL EQUIPMENT FROM [facility] IN [place]. PT HAS NO OUTSIDE SERVICES ASSISTING IN THE HOME. CM DISCUSSED AVAILABILITY OF HOME HEALTH, REHAB SERVICES AND MEDICAL EQUIPMENT. PT AND DAUGHTER WERE THINKING OF INPATIENT REHAB AT [facility], BUT THINK PT WILL GO HOME TOMORROW WITH ASSISTANCE OF FAMILY. PT'S DAUGHTER REPORTS THAT SHE THINKS PT WILL BE FINE TOMORROW AND THAT IF SHE DOES NOT GET STRONGER, SHE WILL CONTACT DR. BELL REGARDING POSSIBLE OUTPATIENT REHAB IF NEEDED. PT CANNOT RECEIVE HOME HEALTH THEY HAVE BEEN THROUGH THIS BEFORE AND THERE ARE NO PROVIDERS IN THEIR AREA. PT DENIES DISCHARGE NEEDS, REPORTS HER DAUGHTER WILL PICK HER UP FOR DISCHARGE HOME TOMORROW MORNING. PT REPORTS NURSE PRACTITIONER PRATEEK TOLD HER SHE COULD STAY TILL TOMORROW MORNING AND PT FEELS SHE WILL BE STRONGER TOMORROW MORNING; PT REPORTS SHE IS NORMALLY "WIPED OUT" AFTER DIALYSIS AND DOES NOT GET HER STRENGTH BACK UNTIL THE FOLLOWING MORNING. PT STATES THAT TONIGHT SHE HAS TO HAVE DIALYSIS BEFORE DISCHARGE AND IT IS A THREE HOUR DRIVE HOME, IT WOULD BE LATE AND PT WOULD BE WEAK. IMPORTANT MESSAGE FROM MEDICARE PROVIDED AND EXPLAINED. SUPERVISOR CD AREA NURSE INFORMED THAT PT WILL DISCHARGE HOME TOMORROW MORNING. CM WAS ADVISED BY SUPERVISOR CD AREA NURSE THAT IS INDICATED POSSIBILITY IN THE DISCHARGE ORDER. PT TO DISCHARGE HOME TOMORROW MORNING, 11-30-18, WITH ASSISTANCE OF FAMILY, DENIES NEEDS AT THIS TIME. Oscar Grace, CASE MANAGEMENT DCPIA - Discharge Planning Initial Assessment Updated by [id number]: Oscar Grace on 11/29/18 2:58 pm * Is the patient Alert and Oriented? Yes * How many steps to enter\\exit or inside your home? RAMP * PCP DR. BELL, [place] * Pharmacy [facility] ON [facility] IN [place] * Preadmission Environment Home with Family * ADLs Independent * Equipment Bedside Commode CPAP Rolling Walker Shower Chair Walker Wheelchair * Other Equipment PROVIDER - [facility] IN [place] * List name and contact numbers for known caregivers / representatives who currently or will assist patient after discharge: JOSE LUIS BONNER, DTR, * Verbal permission to speak to the caregivers and representatives has been obtained from the patient. Yes * Community resources currently utilized Other * Please name any agencies selected above. OUTPATIENT DIALYSIS, [facility], MWF, 1130AM, [employer] * Additional services required to return to the preadmission environment? No * Can the patient safely return to the preadmission environment? Yes * Has this patient been hospitalized within the prior 30 days at any hospital? No Coverage Notice Reviewer: [id number] Cherry Grace Notice Issued Date-Time: 11/29/2018 14:15 Notice Type: IM Discharge Notice Notice Delivered To: Family Member Relationship to Patient: Daughter Public Speaking Instructor Name: JOSE LUIS BONNER Delivery Method: HAND - Hand Delivered Jazmin Days: Prior Verbal Notification: Recipient Understood Notice: Yes Recipient Signature: Yes Med Rec Note Co-signed by Attending: Coverage Notice Comment: Last DP export: 12/01/18 4:46 p Patient Name: SAJAN BONNER Page 46867 at 1807 All edits/amendments must be made on the electronic document DICTATION DATE: 12/01/181805 LANGUAGE ASSISTANT: ASHER 12/01/181805 RPT#: [id number] DC DATE: STATUS: ADM IN [facility] [address] [place] [address] END OF REPORT
[2018-12-01 19:07] LABS: HEMATOCRIT 29.7 % (36.0-48.0); HEMOGLOBIN 9.9 g/dL (12-16)
[2018-12-01 20:30] VITALS: BP 176/62
[2018-12-02 04:30] VITALS: BP 148/52
[2018-12-02 05:36] LABS: BASOPHILS 0.3 % (0-2); EOSINOPHILS 4.3 % (0-7); HEMATOCRIT 28.8 % (36.0-48.0); HEMOGLOBIN 9.6 g/dL (12-16); IMMATURE GRANULOCYTES 0.8 % (0-5); LYMPHOCYTES 13.3 % (15-50); MCHC 33.3 g/dL (31.0-37.0); NEUTROPHILS 67.3 % (40-80); PLATELET COUNT 181 10x3/uL (130-400); RDW 15.8 % (11.5-14.5); WBC 6.2 10x3/uL (4.8-10.8)
[2018-12-02 05:40] LABS: MCV 92.9 fL (80.0-100.0)
[2018-12-02 06:13] LABS: ANION GAP 15.5 mmol/L (8-16); CALCIUM 8.1 mg/dL (8.5-10.1); CARBON DIOXIDE 26.3 mmol/L (21.0-32.0); POTASSIUM - SERUM 3.8 mmol/L (3.5-5.1)
[2018-12-02 06:14] LABS: CREATININE - SERUM 6.2 mg/dL (0.6-1.3)
--- NOTE | 2018-12-02 09:23 | MORECARE ---
CASE MANAGEMENT DISCHARGE SUMMARY PATIENT: SAJAN BONNER UNIT: [id number] ADM DATE: 11/27/18 AGE: 68 : 50 SEX: F ROOM/BED: D.6615 AUTHOR: MARTY,DOC PHYSICIAN: REFERRING PHYSICIAN: CRISTIAN COPELAND MD DATE OF SERVICE: 12/02/18 Discharge Plan Patient Name: SAJAN BONNER Facility: [facility]:[place] : 1950 Planned Disposition: Inpatient Rehab Anticipated Discharge Date: 12/02/18 Discharge Date: Expected LOS: 5 Initial Reviewer: [email or web address] Initial Review Date: 11/29/2018 Generated: 12/02/18 10:23 am Comments DCP- Discharge Planning Updated by [email or web address]: Pamela Blanco on 12/01/18 5:[address] TC TO [facility] IN [place]. SPOKE WITH [facility] ON THE ACUTE REHAB UNIT AT [phone]. FAXED REFERRAL TO [facility] FOR REVIEW IN THE AM. FAX [phone]. DCP- Discharge Planning Updated by [id number]: Pamela Blanco on 12/01/18 4:[address] DISCHARGE PLAN IS NOW FOR ACUTE REHAB AT [facility] IN [place], [place]. DCP- Discharge Planning Updated by [id number]: Pamela Blanco on 11/30/18 4:[address] LATE ENTRY 1230 PATIENT'S DISCHARGE HELD TODAY. SHE FEELS WORSE AND IS COMPLAINING OF DIZZINES. CBC AND BMP CHECKED. HCT DROPPED FROM 34.3 - 25.2 IN THREE DAYS. MONITOR PATIENT. CM TO FOLLOW. DCP- Discharge Planning Updated by [id number]: Oscar Grace on 11/29/18 2:[address] Patient Name: SAJAN BONNER Encounter No: [id number] : 1950 Primary Insurance: MEDICARE A & B Anticipated DC Date: 11-30-2018 Planned Disposition: Home DISCHARGE PLANNING NOTE: CM MET WITH PT AND DAUGHTER IN ROOM TO DISCUSS DISCHARGE PLANNING AND NEEDS. SAJAN BONNER provided verbal consent to discuss current and ongoing needs with/in the presence of: DAUGHTER, JOSE LUIS. PT REPORTS LIVING AT HOME INDEPENDENTLY WITH HER SPOUSE. PT HAS "EVERYTHING" AT HOME; PT REPORTS HAVING CPAP, CANE, WALKER, ROLLING WALKER, BEDSIDE COMMODE, WHEELCHAIR AND SHOWER CHAIR. PT GETS MEDICAL EQUIPMENT FROM [facility] IN [place]. PT HAS NO OUTSIDE SERVICES ASSISTING IN THE HOME. CM DISCUSSED AVAILABILITY OF HOME HEALTH, REHAB SERVICES AND MEDICAL EQUIPMENT. PT AND DAUGHTER WERE THINKING OF INPATIENT REHAB AT [facility], BUT THINK PT WILL GO HOME TOMORROW WITH ASSISTANCE OF FAMILY. PT'S DAUGHTER REPORTS THAT SHE THINKS PT WILL BE FINE TOMORROW AND THAT IF SHE DOES NOT GET STRONGER, SHE WILL CONTACT DR. BELL REGARDING POSSIBLE OUTPATIENT REHAB IF NEEDED. PT CANNOT RECEIVE HOME HEALTH THEY HAVE BEEN THROUGH THIS BEFORE AND THERE ARE NO PROVIDERS IN THEIR AREA. PT DENIES DISCHARGE NEEDS, REPORTS HER DAUGHTER WILL PICK HER UP FOR DISCHARGE HOME TOMORROW MORNING. PT REPORTS NURSE PRACTITIONER PRATEEK TOLD HER SHE COULD STAY TILL TOMORROW MORNING AND PT FEELS SHE WILL BE STRONGER TOMORROW MORNING; PT REPORTS SHE IS NORMALLY "WIPED OUT" AFTER DIALYSIS AND DOES NOT GET HER STRENGTH BACK UNTIL THE FOLLOWING MORNING. PT STATES THAT TONIGHT SHE HAS TO HAVE DIALYSIS BEFORE DISCHARGE AND IT IS A THREE [address] DRIVE HOME, IT WOULD BE LATE AND PT WOULD BE WEAK. IMPORTANT MESSAGE FROM MEDICARE PROVIDED AND EXPLAINED. TRADE SPECIALIST NURSE INFORMED THAT PT WILL DISCHARGE HOME TOMORROW MORNING. CM WAS ADVISED BY TRADE SPECIALIST NURSE THAT IS INDICATED POSSIBILITY IN THE DISCHARGE ORDER. PT TO DISCHARGE HOME TOMORROW MORNING, 11-30-18, WITH ASSISTANCE OF FAMILY, DENIES NEEDS AT THIS TIME. Oscar Grace, CASE MANAGEMENT DCPIA - Discharge Planning Initial Assessment Updated by [id number]: Oscar Grace on 11/29/18 2:58 pm * Is the patient Alert and Oriented? Yes * How many steps to enter\\exit or inside your home? RAMP * PCP DR. BELL, [place] * Pharmacy [facility] IN [place] * Preadmission Environment Home with Family * ADLs Independent * Equipment Bedside Commode CPAP Rolling Walker Shower Chair Walker Wheelchair * Other Equipment PROVIDER - [facility] IN [place] * List name and contact numbers for known caregivers / representatives who currently or will assist patient after discharge: JOSE LUIS BONNER, DTR, * Verbal permission to speak to the caregivers and representatives has been obtained from the patient. Yes * Community resources currently utilized Other * Please name any agencies selected above. OUTPATIENT DIALYSIS, [facility], MWF, 1130AM, [employer] * Additional services required to return to the preadmission environment? No * Can the patient safely return to the preadmission environment? Yes * Has this patient been hospitalized within the prior 30 days at any hospital? No Coverage Notice Reviewer: [id number] Cherry Grace Notice Issued Date-Time: 11/29/2018 14:15 Notice Type: IM Discharge Notice Notice Delivered To: Family Member Relationship to Patient: Daughter House Painter Helper Name: JOSE LUIS BONNER Delivery Method: HAND - Hand Delivered Jazmin Days: Prior Verbal Notification: Recipient Understood Notice: Yes Recipient Signature: Yes Med Rec Note Co-signed by Attending: Coverage Notice Comment: Last DP export: 12/01/18 5:07 p Patient Name: SAJAN BONNER Page [id number] at 0923 All edits/amendments must be made on the electronic document DICTATION DATE: 12/02/18921 RN DIABETES EDUCATOR: ASHER 12/02/18921 RPT#: [id number] DC DATE: STATUS: ADM IN [facility] [address] [place] [address] END OF REPORT
--- NOTE | 2018-12-02 09:51 | MORECARE ---
CASE MANAGEMENT DISCHARGE SUMMARY PATIENT: SAJAN BONNER UNIT: [id number] ADM DATE: 11/27/18 AGE: 68 : 50 SEX: F ROOM/BED: D.5403 AUTHOR: MARTY,DOC PHYSICIAN: REFERRING PHYSICIAN: CRISTIAN COPELAND MD DATE OF SERVICE: 12/02/18 Discharge Plan Patient Name: SAJAN BONNER Facility: [facility]:[place] : 1950 Planned Disposition: Inpatient Rehab Anticipated Discharge Date: 12/02/18 Discharge Date: Expected LOS: 5 Initial Reviewer: [id number] Initial Review Date: 11/29/2018 Generated: 12/02/18 10:51 am Comments DCP- Discharge Planning Updated by [id number]: Pamela Blanco on 12/01/18 5:[address] TC TO [facility] IN [place]. SPOKE WITH [facility] ON THE ACUTE REHAB UNIT AT [phone]. FAXED REFERRAL TO [facility] OF [facility] FOR REVIEW IN THE AM. FAX [phone]. DCP- Discharge Planning Updated by [id number]: Pamela Blanco on 12/01/18 4:[address] DISCHARGE PLAN IS NOW FOR ACUTE REHAB AT [facility] IN [place], [place]. DCP- Discharge Planning Updated by [id number]: Pamela Blanco on 11/30/18 4:[address] LATE ENTRY 1230 PATIENT'S DISCHARGE HELD TODAY. SHE FEELS WORSE AND IS COMPLAINING OF DIZZINES. CBC AND BMP CHECKED. HCT DROPPED FROM 34.3 - 25.2 IN THREE DAYS. MONITOR PATIENT. CM TO FOLLOW. DCP- Discharge Planning Updated by [email or web address]: Oscar Grace on 11/29/18 2:[address] Patient Name: SAJAN BONNER Encounter No: [id number] : 1950 Primary Insurance: MEDICARE A & B Anticipated DC Date: 11-30-2018 Planned Disposition: Home DISCHARGE PLANNING NOTE: CM MET WITH PT AND DAUGHTER IN ROOM TO DISCUSS DISCHARGE PLANNING AND NEEDS. SAJAN BONNER provided verbal consent to discuss current and ongoing needs with/in the presence of: DAUGHTER, JOSE LUIS. PT REPORTS LIVING AT HOME INDEPENDENTLY WITH HER SPOUSE. PT HAS "EVERYTHING" AT HOME; PT REPORTS HAVING CPAP, CANE, WALKER, ROLLING WALKER, BEDSIDE COMMODE, WHEELCHAIR AND SHOWER CHAIR. PT GETS MEDICAL EQUIPMENT FROM [facility] IN [place]. PT HAS NO OUTSIDE SERVICES ASSISTING IN THE HOME. CM DISCUSSED AVAILABILITY OF HOME HEALTH, REHAB SERVICES AND MEDICAL EQUIPMENT. PT AND DAUGHTER WERE THINKING OF INPATIENT REHAB AT [facility], BUT THINK PT WILL GO HOME TOMORROW WITH ASSISTANCE OF FAMILY. PT'S DAUGHTER REPORTS THAT SHE THINKS PT WILL BE FINE TOMORROW AND THAT IF SHE DOES NOT GET STRONGER, SHE WILL CONTACT DR. BELL REGARDING POSSIBLE OUTPATIENT REHAB IF NEEDED. PT CANNOT RECEIVE HOME HEALTH THEY HAVE BEEN THROUGH THIS BEFORE AND THERE ARE NO PROVIDERS IN THEIR AREA. PT DENIES DISCHARGE NEEDS, REPORTS HER DAUGHTER WILL PICK HER UP FOR DISCHARGE HOME TOMORROW MORNING. PT REPORTS NURSE PRACTITIONER PRATEEK TOLD HER SHE COULD STAY TILL TOMORROW MORNING AND PT FEELS SHE WILL BE STRONGER TOMORROW MORNING; PT REPORTS SHE IS NORMALLY "WIPED OUT" AFTER DIALYSIS AND DOES NOT GET HER STRENGTH BACK UNTIL THE FOLLOWING MORNING. PT STATES THAT TONIGHT SHE HAS TO HAVE DIALYSIS BEFORE DISCHARGE AND IT IS A THREE [address] DRIVE HOME, IT WOULD BE LATE AND PT WOULD BE WEAK. IMPORTANT MESSAGE FROM MEDICARE PROVIDED AND EXPLAINED. INSPECTOR PENETRANT NURSE INFORMED THAT PT WILL DISCHARGE HOME TOMORROW MORNING. CM WAS ADVISED BY INSPECTOR PENETRANT NURSE THAT IS INDICATED POSSIBILITY IN THE DISCHARGE ORDER. PT TO DISCHARGE HOME TOMORROW MORNING, 11-30-18, WITH ASSISTANCE OF FAMILY, DENIES NEEDS AT THIS TIME. Oscar Grace, CASE MANAGEMENT DCPIA - Discharge Planning Initial Assessment Updated by [id number]: Oscar Grace on 11/29/18 2:58 pm * Is the patient Alert and Oriented? Yes * How many steps to enter\\exit or inside your home? RAMP * PCP DR. BELL, [place] * Pharmacy [facility] IN [place] * Preadmission Environment Home with Family * ADLs Independent * Equipment Bedside Commode CPAP Rolling Walker Shower Chair Walker Wheelchair * Other Equipment PROVIDER - [facility] IN [place] * List name and contact numbers for known caregivers / representatives who currently or will assist patient after discharge: JOSE LUIS BONNER, DTR, * Verbal permission to speak to the caregivers and representatives has been obtained from the patient. Yes * Community resources currently utilized Other * Please name any agencies selected above. OUTPATIENT DIALYSIS, [facility], MWF, 1130AM, [employer] * Additional services required to return to the preadmission environment? No * Can the patient safely return to the preadmission environment? Yes * Has this patient been hospitalized within the prior 30 days at any hospital? No External Providers External Provider: OTHER-OTHER Next Contact Date: 12/02/2018 Service Request Date: Service Type: Resolution: Reviewer: Comments: Coverage Notice Reviewer: [id number] - Oscar Grace Notice Issued Date-Time: 11/29/2018 14:15 Notice Type: IM Discharge Notice Notice Delivered To: Family Member Relationship to Patient: Daughter Automotive Glass Technician Name: JOSE LUIS BONNER Delivery Method: HAND - Hand Delivered Jazmin Days: Prior Verbal Notification: Recipient Understood Notice: Yes Recipient Signature: Yes Med Rec Note Co-signed by Attending: Coverage Notice Comment: Last DP export: 12/02/18 8:23 a Patient Name: SAJAN BONNER Page [id number] at 0951 All edits/amendments must be made on the electronic document DICTATION DATE: 12/02/18949 WHEEL ADJUSTER: ASHER 12/02/18949 RPT#: [id number] DC DATE: STATUS: ADM IN [facility] [address] [place] [address] END OF REPORT
--- NOTE | 2018-12-02 09:57 | MORECARE ---
CASE MANAGEMENT DISCHARGE SUMMARY PATIENT: SAJAN BONNER UNIT: [id number] ADM DATE: 11/27/18 AGE: 68 : 50 SEX: F ROOM/BED: D.5974 AUTHOR: MARTY,DOC PHYSICIAN: REFERRING PHYSICIAN: CRISTIAN COPELAND MD DATE OF SERVICE: 12/02/18 Discharge Plan Patient Name: SAJAN BONNER Facility: [facility]:[place] : 1950 Planned Disposition: Inpatient Rehab Anticipated Discharge Date: 12/02/18 Discharge Date: Expected LOS: 5 Initial Reviewer: [id number] Initial Review Date: 11/29/2018 Generated: 12/02/18 10:57 am Comments DCP- Discharge Planning Updated by [id number]: Oscar Grace on 12/02/18 8:[address] Patient Name: SAJAN BONNER Encounter No: [id number] : 1950 Primary Insurance: MEDICARE A & B Anticipated DC Date: 12-02-2018 Planned Disposition: Inpatient Rehab External Planned Provider: [facility] DCP follow-up note: CM SPOKE TO DR. COPELAND WHO INFORMED CM THAT PT IS READY FOR DISCHARFGE TO REHAB. CM REVIEWED CHART, FAXED UPDATE TO [facility] INPATIENT REHAB AT [phone]. CM WAITING ADMISSION DETERMINATION FROM INPATIENT REHAB AT [facility]. RYANN Trejo DCP- Discharge Planning Updated by [email or web address]: Pamela Blanco on 12/01/18 5:[address] TC TO [facility] IN [place]. SPOKE WITH [facility] ON THE ACUTE REHAB UNIT AT [phone]. FAXED REFERRAL TO ATT[facility] OF [facility] FOR REVIEW IN THE AM. FAX [phone]. DCP- Discharge Planning Updated by [id number]: Pamela Blanco on 12/01/18 4:[address] DISCHARGE PLAN IS NOW FOR ACUTE REHAB AT [facility] IN [place], [place]. DCP- Discharge Planning Updated by [id number]: Pamela Blanco on 11/30/18 4:[address] LATE ENTRY 1230 PATIENT'S DISCHARGE HELD TODAY. SHE FEELS WORSE AND IS COMPLAINING OF DIZZINES. CBC AND BMP CHECKED. HCT DROPPED FROM 34.3 - 25.2 IN THREE DAYS. MONITOR PATIENT. CM TO FOLLOW. DCP- Discharge Planning Updated by [id number]: Oscar Grace on 11/29/18 2:[address] Patient Name: SAJAN BONNER Encounter No: [id number] : 1950 Primary Insurance: MEDICARE A & B Anticipated DC Date: 11-30-2018 Planned Disposition: Home DISCHARGE PLANNING NOTE: CM MET WITH PT AND DAUGHTER IN ROOM TO DISCUSS DISCHARGE PLANNING AND NEEDS. SAJAN BONNER provided verbal consent to discuss current and ongoing needs with/in the presence of: DAUGHTER, JOSE LUIS. PT REPORTS LIVING AT HOME INDEPENDENTLY WITH HER SPOUSE. PT HAS "EVERYTHING" AT HOME; PT REPORTS HAVING CPAP, CANE, WALKER, ROLLING WALKER, BEDSIDE COMMODE, WHEELCHAIR AND SHOWER CHAIR. PT GETS MEDICAL EQUIPMENT FROM [facility] IN [place]. PT HAS NO OUTSIDE SERVICES ASSISTING IN THE HOME. CM DISCUSSED AVAILABILITY OF HOME HEALTH, REHAB SERVICES AND MEDICAL EQUIPMENT. PT AND DAUGHTER WERE THINKING OF INPATIENT REHAB AT [facility], BUT THINK PT WILL GO HOME TOMORROW WITH ASSISTANCE OF FAMILY. PT'S DAUGHTER REPORTS THAT SHE THINKS PT WILL BE FINE TOMORROW AND THAT IF SHE DOES NOT GET STRONGER, SHE WILL CONTACT DR. BELL REGARDING POSSIBLE OUTPATIENT REHAB IF NEEDED. PT CANNOT RECEIVE HOME HEALTH THEY HAVE BEEN THROUGH THIS BEFORE AND THERE ARE NO PROVIDERS IN THEIR AREA. PT DENIES DISCHARGE NEEDS, REPORTS HER DAUGHTER WILL PICK HER UP FOR DISCHARGE HOME TOMORROW MORNING. PT REPORTS NURSE PRACTITIONER PRATEEK TOLD HER SHE COULD STAY TILL TOMORROW MORNING AND PT FEELS SHE WILL BE STRONGER TOMORROW MORNING; PT REPORTS SHE IS NORMALLY "WIPED OUT" AFTER DIALYSIS AND DOES NOT GET HER STRENGTH BACK UNTIL THE FOLLOWING MORNING. PT STATES THAT TONIGHT SHE HAS TO HAVE DIALYSIS BEFORE DISCHARGE AND IT IS A THREE [address] DRIVE HOME, IT WOULD BE LATE AND PT WOULD BE WEAK. IMPORTANT MESSAGE FROM MEDICARE PROVIDED AND EXPLAINED. RESTORATIVE CARE TECHNICIAN NURSE INFORMED THAT PT WILL DISCHARGE HOME TOMORROW MORNING. CM WAS ADVISED BY RESTORATIVE CARE TECHNICIAN NURSE THAT IS INDICATED POSSIBILITY IN THE DISCHARGE ORDER. PT TO DISCHARGE HOME TOMORROW MORNING, 11-30-18, WITH ASSISTANCE OF FAMILY, DENIES NEEDS AT THIS TIME. Oscar Grace, CASE MANAGEMENT DCPIA - Discharge Planning Initial Assessment Updated by [id number]: Oscar Grace on 11/29/18 2:58 pm * Is the patient Alert and Oriented? Yes * How many steps to enter\\exit or inside your home? RAMP * PCP DR. BELL, [place] * Pharmacy [facility] IN [place] * Preadmission Environment Home with Family * ADLs Independent * Equipment Bedside Commode CPAP Rolling Walker Shower Chair Walker Wheelchair * Other Equipment PROVIDER - [facility] IN [place] * List name and contact numbers for known caregivers / representatives who currently or will assist patient after discharge: JOSE LUIS HA, DTR, * Verbal permission to speak to the caregivers and representatives has been obtained from the patient. Yes * Community resources currently utilized Other * Please name any agencies selected above. OUTPATIENT DIALYSIS, [facility], MWF, 1130AM, [employer] * Additional services required to return to the preadmission environment? No * Can the patient safely return to the preadmission environment? Yes * Has this patient been hospitalized within the prior 30 days at any hospital? No Coverage Notice Reviewer: [id number] - Oscar Grace Notice Issued Date-Time: 11/29/2018 14:15 Notice Type: IM Discharge Notice Notice Delivered To: Family Member Relationship to Patient: Daughter Medical Liaison Name: JOSE LUIS BONNER Delivery Method: HAND - Hand Delivered Jazmin Days: Prior Verbal Notification: Recipient Understood Notice: Yes Recipient Signature: Yes Med Rec Note Co-signed by Attending: Coverage Notice Comment: Last DP export: 12/02/18 8:51 a Patient Name: SAJAN BONNER Page 28413 at 0957 All edits/amendments must be made on the electronic document DICTATION DATE: 12/02/18956 DEAF AND HARD OF HEARING TEACHER: ASHER 12/02/18956 RPT#: [id number] [place] DATE: STATUS: ADM IN [facility] [address] [place] [address] END OF REPORT
[2018-12-02 10:14] VITALS: BP 132/54
--- NOTE | 2018-12-02 14:45 | MORECARE ---
CASE MANAGEMENT DISCHARGE SUMMARY PATIENT: SAJAN BONNER UNIT: [id number] ADM DATE: 11/27/18 AGE: 68 : 50 SEX: F ROOM/BED: D.4984 AUTHOR: MARTY,DOC PHYSICIAN: REFERRING PHYSICIAN: CRISTIAN COPELAND MD DATE OF SERVICE: 12/02/18 Discharge Plan Patient Name: SAJAN BONNER Facility: [facility]:Leslie : 1950 Planned Disposition: Inpatient Rehab Anticipated Discharge Date: 12/02/18 Discharge Date: Expected LOS: 5 Initial Reviewer: [id number] Initial Review Date: 11/29/2018 Generated: 12/02/18 3:44 pm Comments DCP- Discharge Planning Updated by [id number]: Oscar Grace on 12/02/18 1:[address] Patient Name: SAJAN BONNER Encounter No: [id number] : 1950 Primary Insurance: MEDICARE A & B Anticipated DC Date: 12-02-2018 Planned Disposition: Inpatient Rehab External Planned Provider: [facility] DCP follow-up note: CM RECEIVED CALL FROM SARAVANAN OF [facility]PATIENT [facility] WHO REPORTS PLAN TO ACCEPT AND SHE IS WAITING ON THE DOCTOR TO REVIEW PT'S SCREENING. IF ACCEPTING, THEY CANNOT ACCEPT UNTIL 12-03-17. SARAVANAN ASKED FOR DESCRIPTION OF WOUND ON OR AROUND RIGHT ARM AND TO KNOW WHEN PT'S DRAINS WERE REMOVED SHE HAD THEM ON PEDIATRIC AUDIOLOGIST BASIS IN THE PAST. CM NOTIFIED BEDSIDE NURSE ARTUR WHO INFORMED CM THAT THE DRESSING IS COVERING INCISIONS FROM PT'S DIALYSIS ACCESS PROCEDURE. CM SPOKE TO PT AND PT'S SPOUSE IN ROOM, PT PROVIDED PERMISSION TO DISCUSS HER PLAN OF CARE AND DISCHARGE PLANNING IN PRESENCE OF SPOUSE, XIOMARA. PT REPORTS DRAINS WERE REMOVED "MONTHS AGO", WHICH SPOUSE VERIFIED. CM NOTIFIED [facility]N OF [facility] OF CONVERSATION WITH BEDSIDE NURSE AND PT. SARAVANAN REPORTS THEY WILL ACCEPT PT FOR INPATIENT REHAB TOMORROW, 12-03-18, [facility] DOES NOT HAVE TRANSPORTATION AVAILABLE. PT AND SPOUSE NOTIFIED, PT AND SPOUSE INFORMED CM THAT THEY WILL HAVE FAMILY AVAILABLE TO TRANSPORT PT TOMORROW. IMPORTANT MESSAGE FROM MEDICARE PROVIDED AND EXPLAINED. FOR DISCHARGE ON 12-03-18 TO [facility] ON 12-03-18, NURSE REPORT TO BE CALLED TO [phone], FAX DISHCHARGE INFORMATION WITH CURRENT MAR TO [phone]. Oscar Grace, CASE MANAGEMENT DCP- Discharge Planning Updated by [id number]: Oscar Grace on 12/02/18 8:[address] Patient Name: SAJAN BONNER Encounter No: [id number] : 1950 Primary Insurance: MEDICARE A & B Anticipated DC Date: 12-02-2018 Planned Disposition: Inpatient Rehab External Planned Provider: [facility] INPATIENT REHAB DCP follow-up note: CM SPOKE TO DR. COPELAND WHO INFORMED CM THAT PT IS READY FOR DISCHARFGE TO REHAB. CM REVIEWED CHART, FAXED UPDATE TO [facility] INPATIENT [facility] AT [phone]. CM WAITING ADMISSION DETERMINATION FROM INPATIENT REHAB AT [facility]. Oscar Grace, CASE MANGEMENT DCP- Discharge Planning Updated by [id number]: Pamela Blanco on 12/01/18 5:[address] TC TO [facility] IN [place]. SPOKE WITH [facility] ON THE ACUTE REHAB UNIT AT [phone]. FAXED REFERRAL TO [facility] FOR REVIEW IN THE AM. FAX [phone]. DCP- Discharge Planning Updated by [email or web address]: Pamela Blanco on 12/01/18 4:[address] DISCHARGE PLAN IS NOW FOR ACUTE REHAB AT [facility] IN [place], [place]. DCP- Discharge Planning Updated by [id number]: Pamela Blanco on 11/30/18 4:[address] LATE ENTRY 1230 PATIENT'S DISCHARGE HELD TODAY. SHE FEELS WORSE AND IS COMPLAINING OF DIZZINES. CBC AND BMP CHECKED. HCT DROPPED FROM 34.3 - 25.2 IN THREE DAYS. MONITOR PATIENT. CM TO FOLLOW. DCP- Discharge Planning Updated by [id number]: Oscar Grace on 11/29/18 2:[address] Patient Name: SAJAN BONNER Encounter No: [id number] : 1950 Primary Insurance: MEDICARE A & B Anticipated DC Date: 11-30-2018 Planned Disposition: Home DISCHARGE PLANNING NOTE: CM MET WITH PT AND DAUGHTER IN ROOM TO DISCUSS DISCHARGE PLANNING AND NEEDS. SAJAN BONNER provided verbal consent to discuss current and ongoing needs with/in the presence of: DAUGHTER, JOSE LUIS. PT REPORTS LIVING AT HOME INDEPENDENTLY WITH HER SPOUSE. PT HAS "EVERYTHING" AT HOME; PT REPORTS HAVING CPAP, CANE, WALKER, ROLLING WALKER, BEDSIDE COMMODE, WHEELCHAIR AND SHOWER CHAIR. PT GETS MEDICAL EQUIPMENT FROM [facility] IN [place]. PT HAS NO OUTSIDE SERVICES ASSISTING IN THE HOME. CM DISCUSSED AVAILABILITY OF HOME HEALTH, REHAB SERVICES AND MEDICAL EQUIPMENT. PT AND DAUGHTER WERE THINKING OF INPATIENT REHAB AT [facility], BUT THINK PT WILL GO HOME TOMORROW WITH ASSISTANCE OF FAMILY. PT'S DAUGHTER REPORTS THAT SHE THINKS PT WILL BE FINE TOMORROW AND THAT IF SHE DOES NOT GET STRONGER, SHE WILL CONTACT DR. BELL REGARDING POSSIBLE OUTPATIENT REHAB IF NEEDED. PT CANNOT RECEIVE HOME HEALTH THEY HAVE BEEN THROUGH THIS BEFORE AND THERE ARE NO PROVIDERS IN THEIR AREA. PT DENIES DISCHARGE NEEDS, REPORTS HER DAUGHTER WILL PICK HER UP FOR DISCHARGE HOME TOMORROW MORNING. PT REPORTS NURSE PRACTITIONER PRATEEK TOLD HER SHE COULD STAY TILL TOMORROW MORNING AND PT FEELS SHE WILL BE STRONGER TOMORROW MORNING; PT REPORTS SHE IS NORMALLY "WIPED OUT" AFTER DIALYSIS AND DOES NOT GET HER STRENGTH BACK UNTIL THE FOLLOWING MORNING. PT STATES THAT TONIGHT SHE HAS TO HAVE DIALYSIS BEFORE DISCHARGE AND IT IS A THREE [address] DRIVE HOME, IT WOULD BE LATE AND PT WOULD BE WEAK. IMPORTANT MESSAGE FROM MEDICARE PROVIDED AND EXPLAINED. CARE MANAGEMENT COORDINATOR NURSE INFORMED THAT PT WILL DISCHARGE HOME TOMORROW MORNING. CM WAS ADVISED BY CARE MANAGEMENT COORDINATOR NURSE THAT IS INDICATED POSSIBILITY IN THE DISCHARGE ORDER. PT TO DISCHARGE HOME TOMORROW MORNING, 11-30-18, WITH ASSISTANCE OF FAMILY, DENIES NEEDS AT THIS TIME. Oscar Grace, CASE MANAGEMENT DCPIA - Discharge Planning Initial Assessment Updated by [email or web address]: Oscar Grace on 11/29/18 2:58 pm * Is the patient Alert and Oriented? Yes * How many steps to enter\\exit or inside your home? RAMP * PCP DR. BELL, [place] * Pharmacy [facility] * Preadmission Environment Home with Family * ADLs Independent * Equipment Bedside Commode CPAP Rolling Walker Shower Chair Walker Wheelchair * Other Equipment PROVIDER - [facility] IN [place] * List name and contact numbers for known caregivers / representatives who currently or will assist patient after discharge: JOSE LUIS BONNER, DTR, * Verbal permission to speak to the caregivers and representatives has been obtained from the patient. Yes * Community resources currently utilized Other * Please name any agencies selected above. OUTPATIENT DIALYSIS, [facility], MWF, 1130AM, [employer] * Additional services required to return to the preadmission environment? No * Can the patient safely return to the preadmission environment? Yes * Has this patient been hospitalized within the prior 30 days at any hospital? No Coverage Notice Reviewer: [email or web address] Grace Notice Issued Date-Time: 11/29/2018 14:15 Notice Type: IM Discharge Notice Notice Delivered To: Family Member Relationship to Patient: Daughter Ergonomics Consultant Name: JOSE LUIS BONNER Delivery Method: HAND - Hand Delivered Jazmin Days: Prior Verbal Notification: Recipient Understood Notice: Yes Recipient Signature: Yes Med Rec Note Co-signed by Attending: Coverage Notice Comment: Reviewer: ADRIAN Grace Notice Issued Date-Time: 12/02/2018 14:20 Notice Type: IM Discharge Notice Notice Delivered To: Patient Relationship to Patient: Ergonomics Consultant Name: Delivery Method: HAND - Hand Delivered Jazmin Days: Prior Verbal Notification: Recipient Understood Notice: Yes Recipient Signature: Yes Med Rec Note Co-signed by Attending: Coverage Notice Comment: Last DP export: 12/02/18 8:57 a Patient Name: SAJAN BONNER Page [phone] at 1445 All edits/amendments must be made on the electronic document DICTATION DATE: 12/02/18 144 MATTRESS MAKER: ASHER 12/02/18 1444 RPT#: [id number] DC DATE: STATUS: ADM IN [facility] [address] [place] [address] END OF REPORT
--- NOTE | 2018-12-02 15:26 | OP ---
PATIENT NAME: SAJAN BONNER MEDICAL RECORD: [id number] :[birth year] LOCATION:D.M2 D.2138 ADMISSION DATE:11/27/18 SURGEON: MARCIA PANCHAL MD DATE OF OPERATION: 11/27/2018 PROCEDURE: Left heart catheterization, selective coronary angiography, right femoral artery approach. CATHETERS: A 5-Palestinian sheath, 5/4 left and right Radha, 5/4 pig. The procedure was well tolerated. The patient returned to [place]. Sheath was removed. ExoSeal device placed. FINDINGS: Left ventriculography in 30-degree KASPER view shows inferior basilar hypokinesis, LV function lower limits of normal, mildly reduced at 40% to 45%. CORONARY ANATOMY: LEFT MAIN: Left main is free of disease. LAD: An area of previous stenting is widely patent with no evidence of restenosis. CIRCUMFLEX: OM/ramus system is widely patent. RIGHT CORONARY ARTERY: Has a diffuse stenosis proximally of 80%, mid portion of 50% nondistally, 80% stenosis; however, there is distal collateralization to the PDA. IMPRESSION: We will plan intervention to the proximal right momentarily. DESCRIPTION OF PROCEDURE: A 5-Palestinian sheath was exchanged for a 6-Palestinian sheath. We used multiple guide catheters, finally a hockey stick 2 guiding catheter provided fair guide catheter support. We will place a Whisper wire down to the distal part of the right coronary. Then, using a 1.5 balloon as an exchange catheter, we placed a PT export wire. Multiple balloon inflations were made with a 2 and 2.5 balloon, freed deployment for stenting. We were able to place stents proximally two 3.0 x 15 mm Integrity drug-eluting stents, still residual stenosis about 50% in mid portion and distal stenosis described above; however, distal right is also getting collateral formation. Sheath closed with ExoSeal device. 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 No contraindication to sooner surgery; however, this may be done on Plavix. TRANSINT:[id number] Voice Confirmation ID: [id number] DOCUMENT ID: [id number] MARCIA PANCHAL MD at 1526 CC: [id number] DICTATION DATE: 11/27/18 1051 APPLIANCES SAMPLE MAKER: 11/27/18 1451 ADM IN [place] [id number] [place] [address]
[2018-12-02 19:55] VITALS: BP 150/56
[2018-12-03 00:11] VITALS: BP 134/67
[2018-12-03 03:50] VITALS: BP 140/61
[2018-12-03 06:46] LABS: ANION GAP 14.9 mmol/L (8-16); CALCIUM 8.7 mg/dL (8.5-10.1); CARBON DIOXIDE 26.9 mmol/L (21.0-32.0); CREATININE - SERUM 4.5 mg/dL (0.6-1.3); POTASSIUM - SERUM 3.8 mmol/L (3.5-5.1)
[2018-12-03 07:26] LABS: BASOPHILS 0.5 % (0-2); EOSINOPHILS 3.8 % (0-7); HEMATOCRIT 30.8 % (36.0-48.0); HEMOGLOBIN 10.3 g/dL (12-16); IMMATURE GRANULOCYTES 1.1 % (0-5); LYMPHOCYTES 17.2 % (15-50); MCHC 33.4 g/dL (31.0-37.0); MCV 92.8 fL (80.0-100.0); MEAN PLATELET VOLUME 9.8 fL (7.4-10.4); MONOCYTES 15.1 % (2-11); NEUTROPHILS 62.3 % (40-80); PLATELET COUNT 212 10x3/uL (130-400); RBC 3.32 10x6/uL (4.00-5.40); WBC 6.4 10x3/uL (4.8-10.8)
--- NOTE | 2018-12-03 07:59 | MORECARE ---
CASE MANAGEMENT DISCHARGE SUMMARY PATIENT: SAJAN BONNER UNIT: [id number] ADM DATE: 11/27/18 AGE: 68 : 50 SEX: F ROOM/BED: D.1224 AUTHOR: MARTY,DOC PHYSICIAN: REFERRING PHYSICIAN: CRISTIAN COPELAND MD DATE OF SERVICE: 12/03/18 Discharge Plan Patient Name: SAJAN BONNER Facility: [facility]:[place]iram : 1950 Planned Disposition: Inpatient Rehab Anticipated Discharge Date: 12/03/18 Discharge Date: Expected LOS: 6 Initial Reviewer: [id number] Initial Review Date: 11/29/2018 Generated: 12/03/18 8:59 am Comments DCP- Discharge Planning Updated by [id number]: Oscar Grace on 12/02/18 1:[address] Patient Name: SAJAN BONNER Encounter No: [id number] : 1950 Primary Insurance: MEDICARE A & B Anticipated DC Date: 12-02-2018 Planned Disposition: Inpatient Rehab External Planned Provider: [facility] INPATIENT REH[facility] DCP follow-up note: CM RECEIVED CALL FROM SARAVANAN OF [facility] INPATIENT [facility] WHO REPORTS PLAN TO ACCEPT AND SHE IS WAITING ON THE DOCTOR TO REVIEW PT'S SCREENING. IF ACCEPTING, THEY CANNOT ACCEPT UNTIL 12-03-17. SARAVANAN ASKED FOR DESCRIPTION OF WOUND ON OR AROUND RIGHT ARM AND TO KNOW WHEN PT'S DRAINS WERE REMOVED SHE HAD THEM ON STONE BREAKER BASIS IN THE PAST. CM NOTIFIED BEDSIDE NURSE ARTUR WHO INFORMED CM THAT THE DRESSING IS COVERING INCISIONS FROM PT'S DIALYSIS ACCESS PROCEDURE. CM SPOKE TO PT AND PT'S SPOUSE IN ROOM, PT PROVIDED PERMISSION TO DISCUSS HER PLAN OF CARE AND DISCHARGE PLANNING IN PRESENCE OF SPOUSE, XIOMARA. PT REPORTS DRAINS WERE REMOVED "MONTHS AGO", WHICH SPOUSE VERIFIED. CM NOTIFIED [facility]N OF [facility] OF CONVERSATION WITH BEDSIDE NURSE AND PT. SARAVANAN REPORTS THEY WILL ACCEPT PT FOR INPATIENT REHAB TOMORROW, 12-03-18, [facility] DOES NOT HAVE TRANSPORTATION AVAILABLE. PT AND SPOUSE NOTIFIED, PT AND SPOUSE INFORMED CM THAT THEY WILL HAVE FAMILY AVAILABLE TO TRANSPORT PT TOMORROW. IMPORTANT MESSAGE FROM MEDICARE PROVIDED AND EXPLAINED. FOR DISCHARGE ON 12-03-18 TO [facility] ON 12-03-18, NURSE REPORT TO BE CALLED TO [phone], FAX DISHCHARGE INFORMATION WITH CURRENT MAR TO [phone]. Oscar Grace, CASE MANAGEMENT DCP- Discharge Planning Updated by [id number]: sOcar Grace on 12/02/18 8:[address] Patient Name: SAJAN BONNER Encounter No: [id number] : 1950 Primary Insurance: MEDICARE A & B Anticipated DC Date: 12-02-2018 Planned Disposition: Inpatient Rehab External Planned Provider: [facility] INPATIENT REHAB DCP follow-up note: CM SPOKE TO DR. COPELAND WHO INFORMED CM THAT PT IS READY FOR DISCHARFGE TO REHAB. CM REVIEWED CHART, FAXED UPDATE TO [facility] INPATIENT [facility] AT [phone]. CM WAITING ADMISSION DETERMINATION FROM INPATIENT REHAB AT [facility]. Oscar Grace, CASE MANGEMENT DCP- Discharge Planning Updated by [id number]: Pamela Blanco on 12/01/18 5:[address] [facility] IN [place]. SPOKE WITH [facility] ON THE ACUTE REHAB UNIT AT [phone]. FAXED REFERRAL TO [facility] FOR REVIEW IN THE AM. FAX [phone]. DCP- Discharge Planning Updated by [id number]: Pamela Blanco on 12/01/18 4:[address] DISCHARGE PLAN IS NOW FOR ACUTE REHAB AT [facility] IN [place], [place]. DCP- Discharge Planning Updated by [id number]: Pamela Blanco on 11/30/18 4:[address] LATE ENTRY 1230 PATIENT'S DISCHARGE HELD TODAY. SHE FEELS WORSE AND IS COMPLAINING OF DIZZINES. CBC AND BMP CHECKED. HCT DROPPED FROM 34.3 - 25.2 IN THREE DAYS. MONITOR PATIENT. CM TO FOLLOW. DCP- Discharge Planning Updated by [id number]: Oscar Grace on 11/29/18 2:[address] Patient Name: SAJAN BONNER Encounter No: [id number] : 1950 Primary Insurance: MEDICARE A & B Anticipated DC Date: 11-30-2018 Planned Disposition: Home DISCHARGE PLANNING NOTE: CM MET WITH PT AND DAUGHTER IN ROOM TO DISCUSS DISCHARGE PLANNING AND NEEDS. SAJAN BONNER provided verbal consent to discuss current and ongoing needs with/in the presence of: DAUGHTER, JOSE LUIS. PT REPORTS LIVING AT HOME INDEPENDENTLY WITH HER SPOUSE. PT HAS "EVERYTHING" AT HOME; PT REPORTS HAVING CPAP, CANE, WALKER, ROLLING WALKER, BEDSIDE COMMODE, WHEELCHAIR AND SHOWER CHAIR. PT GETS MEDICAL EQUIPMENT FROM [facility] IN [place]. PT HAS NO OUTSIDE SERVICES ASSISTING IN THE HOME. CM DISCUSSED AVAILABILITY OF HOME HEALTH, REHAB SERVICES AND MEDICAL EQUIPMENT. PT AND DAUGHTER WERE THINKING OF INPATIENT REHAB AT [facility], BUT THINK PT WILL GO HOME TOMORROW WITH ASSISTANCE OF FAMILY. PT'S DAUGHTER REPORTS THAT SHE THINKS PT WILL BE FINE TOMORROW AND THAT IF SHE DOES NOT GET STRONGER, SHE WILL CONTACT DR. BELL REGARDING POSSIBLE OUTPATIENT REHAB IF NEEDED. PT CANNOT RECEIVE HOME HEALTH THEY HAVE BEEN THROUGH THIS BEFORE AND THERE ARE NO PROVIDERS IN THEIR AREA. PT DENIES DISCHARGE NEEDS, REPORTS HER DAUGHTER WILL PICK HER UP FOR DISCHARGE HOME TOMORROW MORNING. PT REPORTS NURSE PRACTITIONER PRATEEK TOLD HER SHE COULD STAY TILL TOMORROW MORNING AND PT FEELS SHE WILL BE STRONGER TOMORROW MORNING; PT REPORTS SHE IS NORMALLY "WIPED OUT" AFTER DIALYSIS AND DOES NOT GET HER STRENGTH BACK UNTIL THE FOLLOWING MORNING. PT STATES THAT TONIGHT SHE HAS TO HAVE DIALYSIS BEFORE DISCHARGE AND IT IS A THREE [address] DRIVE HOME, IT WOULD BE LATE AND PT WOULD BE WEAK. IMPORTANT MESSAGE FROM MEDICARE PROVIDED AND EXPLAINED. LAMP ASSEMBLER NURSE INFORMED THAT PT WILL DISCHARGE HOME TOMORROW MORNING. CM WAS ADVISED BY LAMP ASSEMBLER NURSE THAT IS INDICATED POSSIBILITY IN THE DISCHARGE ORDER. PT TO DISCHARGE HOME TOMORROW MORNING, 11-30-18, WITH ASSISTANCE OF FAMILY, DENIES NEEDS AT THIS TIME. Oscar Grace, CASE MANAGEMENT DCPIA - Discharge Planning Initial Assessment Updated by [id number]: Oscar Grace on 11/29/18 2:58 pm * Is the patient Alert and Oriented? Yes * How many steps to enter\\exit or inside your home? RAMP * PCP DR. BELL, [place] * Pharmacy [facility] * Preadmission Environment Home with Family * ADLs Independent * Equipment Bedside Commode CPAP Rolling Walker Shower Chair Walker Wheelchair * Other Equipment PROVIDER - [facility] IN [place] * List name and contact numbers for known caregivers / representatives who currently or will assist patient after discharge: JOSE LUIS BONNER, DTR, * Verbal permission to speak to the caregivers and representatives has been obtained from the patient. Yes * Community resources currently utilized Other * Please name any agencies selected above. OUTPATIENT DIALYSIS, [facility], MWF, 1130AM, [employer] * Additional services required to return to the preadmission environment? No * Can the patient safely return to the preadmission environment? Yes * Has this patient been hospitalized within the prior 30 days at any hospital? No Coverage Notice Reviewer: [id number] Grace Notice Issued Date-Time: 11/29/2018 14:15 Notice Type: IM Discharge Notice Notice Delivered To: Family Member Relationship to Patient: Daughter Home Performance Consultant Name: JOSE LUIS BONNER Delivery Method: HAND - Hand Delivered Jazmin Days: Prior Verbal Notification: Recipient Understood Notice: Yes Recipient Signature: Yes Med Rec Note Co-signed by Attending: Coverage Notice Comment: Reviewer: ADRIAN Grace Notice Issued Date-Time: 12/02/2018 14:20 Notice Type: IM Discharge Notice Notice Delivered To: Patient Relationship to Patient: Home Performance Consultant Name: Delivery Method: HAND - Hand Delivered Jazmin Days: Prior Verbal Notification: Recipient Understood Notice: Yes Recipient Signature: Yes Med Rec Note Co-signed by Attending: Coverage Notice Comment: Last DP export: 12/02/18 1:45 p Patient Name: SAJAN BONNER Page [phone] at 0759 All edits/amendments must be made on the electronic document DICTATION DATE: 12/03/18758 RAILWAY SIGNALLING ENGINEER: ASHER 12/03/18 0759 RPT#: [id number] DC DATE: STATUS: ADM IN [facility] [address] [place] [address] END OF REPORT
[2018-12-03 09:47] VITALS: BP 111/51
[2018-12-03 10:26] LABS: CHOL - HDL RATIO 3.6 ratio (2.3-4.1); LDL-HDL RATIO 1.8 ratio (1.5-3.5)
--- NOTE | 2018-12-03 12:16 | MORECARE ---
CASE MANAGEMENT DISCHARGE SUMMARY PATIENT: SAJAN BONNER UNIT: [id number] ADM DATE: 11/27/18 AGE: 68 : 50 SEX: F ROOM/BED: D.5805 AUTHOR: MARTY,DOC PHYSICIAN: REFERRING PHYSICIAN: CRISTIAN COPELAND MD DATE OF SERVICE: 12/03/18 Discharge Plan Patient Name: SAJAN BONNER Facility: [facility]:[place] : 1950 Planned Disposition: Inpatient Rehab Anticipated Discharge Date: 12/03/18 Discharge Date: Expected LOS: 6 Initial Reviewer: [id number] Initial Review Date: 11/29/2018 Generated: 12/03/18 1:16 pm Comments DCP- Discharge Planning Updated by [id number]: Oscar Grace on 12/03/18 11:[address] Patient Name: SAJAN BONNER Encounter No: [id number] : 1950 Primary Insurance: MEDICARE A & B Anticipated DC Date: 12-03-2018 Planned Disposition: Inpatient Rehab External Planned Provider: [facility] DCP follow-up note: CM [facility] WHO [facility]FORMED THEY ARE READY TO ACCEPT PT TODAY, THERE IS NO REQUIRED TIME FOR ARRIVAL. PT NOTIFIED AND REPORTS FAMILY WILL TRANSPORT TODAY. CM FAXED DISHCHARGE INFORMATION WITH CURRENT MAR TO [phone]. NURSE REPORT TO BE CALLED TO [phone], FAMILY TO TRANSPORT TO REHAB. RYANN Trejo DCP- Discharge Planning Updated by [id number]: Oscar Grace on 12/02/18 1:[address] Patient Name: SAJAN BONNER Encounter No: [id number] : 1950 Primary Insurance: MEDICARE A & B Anticipated DC Date: 12-02-2018 Planned Disposition: Inpatient Rehab External Planned Provider: [facility] DCP follow-up note: CM RECEIVED [facility] WHO REPORTS PLAN TO ACCEPT AND SHE IS WAITING ON THE DOCTOR TO REVIEW PT'S SCREENING. IF ACCEPTING, THEY CANNOT ACCEPT UNTIL 12-03-17. SARAVANAN ASKED FOR DESCRIPTION OF WOUND ON OR AROUND RIGHT ARM AND TO KNOW WHEN PT'S DRAINS WERE REMOVED SHE HAD THEM ON MECHANICAL DESIGN TECHNICIAN BASIS IN THE PAST. CM NOTIFIED BEDSIDE NURSE ARTUR WHO INFORMED CM THAT THE DRESSING IS COVERING INCISIONS FROM PT'S DIALYSIS ACCESS PROCEDURE. CM SPOKE TO PT AND PT'S SPOUSE IN ROOM, PT PROVIDED PERMISSION TO DISCUSS HER PLAN OF CARE AND DISCHARGE PLANNING IN PRESENCE OF SPOUSE, XIOMARA. PT REPORTS DRAINS WERE REMOVED "MONTHS AGO", WHICH SPOUSE VERIFIED. CM NOTIFIED SARAVANAN OF [facility] OF CONVERSATION WITH BEDSIDE NURSE AND PT. SARAVANAN REPORTS THEY WILL ACCEPT PT FOR INPATIENT REHAB TOMORROW, 12-03-18, [facility] DOES NOT HAVE TRANSPORTATION AVAILABLE. PT AND SPOUSE NOTIFIED, PT AND SPOUSE INFORMED CM THAT THEY WILL HAVE FAMILY AVAILABLE TO TRANSPORT PT TOMORROW. IMPORTANT MESSAGE FROM MEDICARE PROVIDED AND EXPLAINED. FOR DISCHARGE ON 12-03-18 TO [place] [facility] ON 12-03-18, NURSE REPORT TO BE CALLED TO [phone], FAX DISHCHARGE INFORMATION WITH CURRENT MAR TO [phone]. Oscar Grace, CASE MANAGEMENT DCP- Discharge Planning Updated by [id number]: Oscar Grace on 12/02/18 8:[address] Patient Name: SAJAN BONNER Encounter No: [id number] : 1950 Primary Insurance: MEDICARE A & B Anticipated DC Date: 12-02-2018 Planned Disposition: Inpatient Rehab External Planned Provider: [facility] DCP follow-up note: CM SPOKE TO DR. COPELAND WHO INFORMED CM THAT PT IS READY FOR DISCHARFGE TO REHAB. CM REVIEWED CHART, FAXED UPDATE TO [facility] IN[facility] AT [phone]. CM WAITING ADMISSION DETERMINATION FROM INPATIENT REHAB AT [facility]. RYANN Trejo MANGEMENT DCP- Discharge Planning Updated by [id number]: Pamela Blanco on 12/01/18 5:[address] [facility] IN [place]. SPOKE WITH [facility] ON THE ACUTE REHAB UNIT AT [phone]. FAXED REFERRAL TO [facility] FOR REVIEW IN THE AM. FAX [phone]. DCP- Discharge Planning Updated by [id number]: Pamela Blanco on 12/01/18 4:[address] DISCHARGE PLAN IS NOW FOR ACUTE REHAB AT [facility] IN [place], [place]. DCP- Discharge Planning Updated by [id number]: Pamela Blanco on 11/30/18 4:[address] LATE ENTRY 1230 PATIENT'S DISCHARGE HELD TODAY. SHE FEELS WORSE AND IS COMPLAINING OF DIZZINES. CBC AND BMP CHECKED. HCT DROPPED FROM 34.3 - 25.2 IN THREE DAYS. MONITOR PATIENT. CM TO FOLLOW. DCP- Discharge Planning Updated by [id number]: Oscar Wallacewell on 11/29/18 2:[address] Patient Name: SAJAN BONNER Encounter No: [id number] : 1950 Primary Insurance: MEDICARE A & B Anticipated DC Date: 11-30-2018 Planned Disposition: Home DISCHARGE PLANNING NOTE: CM MET WITH PT AND DAUGHTER IN ROOM TO DISCUSS DISCHARGE PLANNING AND NEEDS. SAJAN BONNER provided verbal consent to discuss current and ongoing needs with/in the presence of: DAUGHTER, JOSE LUIS. PT REPORTS LIVING AT HOME INDEPENDENTLY WITH HER SPOUSE. PT HAS "EVERYTHING" AT HOME; PT REPORTS HAVING CPAP, CANE, WALKER, ROLLING WALKER, BEDSIDE COMMODE, WHEELCHAIR AND SHOWER CHAIR. PT GETS MEDICAL EQUIPMENT FROM [facility] IN [place]. PT HAS NO OUTSIDE SERVICES ASSISTING IN THE HOME. CM DISCUSSED AVAILABILITY OF HOME HEALTH, REHAB SERVICES AND MEDICAL EQUIPMENT. PT AND DAUGHTER WERE THINKING OF INPATIENT REHAB AT [facility], BUT THINK PT WILL GO HOME TOMORROW WITH ASSISTANCE OF FAMILY. PT'S DAUGHTER REPORTS THAT SHE THINKS PT WILL BE FINE TOMORROW AND THAT IF SHE DOES NOT GET STRONGER, SHE WILL CONTACT DR. BELL REGARDING POSSIBLE OUTPATIENT REHAB IF NEEDED. PT CANNOT RECEIVE HOME HEALTH THEY HAVE BEEN THROUGH THIS BEFORE AND THERE ARE NO PROVIDERS IN THEIR AREA. PT DENIES DISCHARGE NEEDS, REPORTS HER DAUGHTER WILL PICK HER UP FOR DISCHARGE HOME TOMORROW MORNING. PT REPORTS NURSE PRACTITIONER PRATEEK TOLD HER SHE COULD STAY TILL TOMORROW MORNING AND PT FEELS SHE WILL BE STRONGER TOMORROW MORNING; PT REPORTS SHE IS NORMALLY "WIPED OUT" AFTER DIALYSIS AND DOES NOT GET HER STRENGTH BACK UNTIL THE FOLLOWING MORNING. PT STATES THAT TONIGHT SHE HAS TO HAVE DIALYSIS BEFORE DISCHARGE AND IT IS A THREE [address]IVE HOME, IT WOULD BE LATE AND PT WOULD BE WEAK. IMPORTANT MESSAGE FROM MEDICARE PROVIDED AND EXPLAINED. EMAIL ENGINEER NURSE INFORMED THAT PT WILL DISCHARGE HOME TOMORROW MORNING. CM WAS ADVISED BY EMAIL ENGINEER NURSE THAT IS INDICATED POSSIBILITY IN THE DISCHARGE ORDER. PT TO DISCHARGE HOME TOMORROW MORNING, 11-30-18, WITH ASSISTANCE OF FAMILY, DENIES NEEDS AT THIS TIME. Oscar Grace, CASE MANAGEMENT DCPIA - Discharge Planning Initial Assessment Updated by ADRIAN: Oscar Grace on 11/29/18 2:58 pm * Is the patient Alert and Oriented? Yes * How many steps to enter\\exit or inside your home? RAMP * PCP DR. BELL, [place] * Pharmacy [facility] IN [place] * Preadmission Environment Home with Family * ADLs Independent * Equipment Bedside Commode CPAP Rolling Walker Shower Chair Walker Wheelchair * Other Equipment PROVIDER - [facility] IN [place] * List name and contact numbers for known caregivers / representatives who currently or will assist patient after discharge: JOSE LUIS BONNER, DTR, * Verbal permission to speak to the caregivers and representatives has been obtained from the patient. Yes * Community resources currently utilized Other * Please name any agencies selected above. OUTPATIENT DIALYSIS, [facility], MWF, 1130AM, [employer] * Additional services required to return to the preadmission environment? No * Can the patient safely return to the preadmission environment? Yes * Has this patient been hospitalized within the prior 30 days at any hospital? No Coverage Notice Reviewer: [id number] Cherry Grace Notice Issued Date-Time: 11/29/2018 14:15 Notice Type: IM Discharge Notice Notice Delivered To: Family Member Relationship to Patient: Daughter Crossbar Switch Adjuster Name: JOSE LUIS BONNER Delivery Method: HAND - Hand Delivered Jazmin Days: Prior Verbal Notification: Recipient Understood Notice: Yes Recipient Signature: Yes Med Rec Note Co-signed by Attending: Coverage Notice Comment: Reviewer: [id number] Cherry Grace Notice Issued Date-Time: 12/02/2018 14:20 Notice Type: IM Discharge Notice Notice Delivered To: Patient Relationship to Patient: Crossbar Switch Adjuster Name: Delivery Method: HAND - Hand Delivered Jazmin Days: Prior Verbal Notification: Recipient Understood Notice: Yes Recipient Signature: Yes Med Rec Note Co-signed by Attending: Coverage Notice Comment: Last DP export: 12/03/18 6:59 a Patient Name: SJAAN BONNER Page [id number] at 1216 All edits/amendments must be made on the electronic document DICTATION DATE: 12/03/181215 MOTORCYCLE MAKER: ASHER 12/03/181215 RPT#: [id number] DC DATE: STATUS: ADM IN [facility] [address] [place] [address] END OF REPORT
--- NOTE | 2018-12-03 12:25 | MORECARE ---
CASE MANAGEMENT DISCHARGE SUMMARY PATIENT: SAJAN BONNER UNIT: [id number] ADM DATE: 11/27/18 AGE: 68 : 50 SEX: F ROOM/BED: D.8891 AUTHOR: MARTY,DOC PHYSICIAN: REFERRING PHYSICIAN: CRISTIAN COPEALND MD DATE OF SERVICE: 12/03/18 Discharge Plan Patient Name: SAJAN BONNER Facility: [facility]:[place] : 1950 Planned Disposition: Inpatient Rehab Anticipated Discharge Date: 12/03/18 Discharge Date: Expected LOS: 6 Initial Reviewer: [id number] Initial Review Date: 11/29/2018 Generated: 12/03/18 1:25 pm Comments DCP- Discharge Planning Updated by [id number]: Oscar Grace on 12/03/18 11:[address] Patient Name: SAJAN BONNER Encounter No: [id number] : 1950 Primary Insurance: MEDICARE A & B Anticipated DC Date: 12-03-2018 Planned Disposition: Inpatient Rehab External Planned Provider: [facility] DCP follow-up note: [facility] WHO INFORMED THEY ARE READY TO ACCEPT PT TODAY, THERE IS NO REQUIRED TIME FOR ARRIVAL. PT NOTIFIED AND REPORTS FAMILY WILL TRANSPORT TODAY. CM FAXED DISHCHARGE INFORMATION WITH CURRENT MAR TO [phone]. NURSE REPORT TO BE CALLED TO [phone], FAMILY TO TRANSPORT TO REHAB. RYANN Trejo DCP- Discharge Planning Updated by [email or web address]: Oscar Grace on 12/02/18 1:[address] Patient Name: SAJAN BONNER Encounter No: [id number] : 1950 Primary Insurance: MEDICARE A & B Anticipated DC Date: 12-02-2018 Planned Disposition: Inpatient Rehab External Planned Provider: [facility] DCP follow-up note: CM RECEIVED CALL FROM [facility] WHO REPORTS PLAN TO ACCEPT AND SHE IS WAITING ON THE DOCTOR TO REVIEW PT'S SCREENING. IF ACCEPTING, THEY CANNOT ACCEPT UNTIL 12-03-17. SARAVANAN ASKED FOR DESCRIPTION OF WOUND ON OR AROUND RIGHT ARM AND TO KNOW WHEN PT'S DRAINS WERE REMOVED SHE HAD THEM ON REFINISH TECHNICIAN BASIS IN THE PAST. CM NOTIFIED BEDSIDE NURSE ARTUR WHO INFORMED CM THAT THE DRESSING IS COVERING INCISIONS FROM PT'S DIALYSIS ACCESS PROCEDURE. CM SPOKE TO PT AND PT'S SPOUSE IN ROOM, PT PROVIDED PERMISSION TO DISCUSS HER PLAN OF CARE AND DISCHARGE PLANNING IN PRESENCE OF SPOUSE, XIOMARA. PT REPORTS DRAINS WERE REMOVED "MONTHS AGO", WHICH SPOUSE VERIFIED. CM NOTIFIED SARAVANAN OF [facility] OF CONVERSATION WITH BEDSIDE NURSE AND PT. SARAVANAN REPORTS THEY WILL ACCEPT PT FOR INPATIENT REHAB TOMORROW, 12-03-18, [facility] DOES NOT HAVE TRANSPORTATION AVAILABLE. PT AND SPOUSE NOTIFIED, PT AND SPOUSE INFORMED CM THAT THEY WILL HAVE FAMILY AVAILABLE TO TRANSPORT PT TOMORROW. IMPORTANT MESSAGE FROM MEDICARE PROVIDED AND EXPLAINED. FOR DISCHARGE ON 12-03-18 TO [facility] ON 12-03-18, NURSE REPORT TO BE CALLED TO [phone], FAX DISHCHARGE INFORMATION WITH CURRENT MAR TO [phone]. Oscar Grace, CASE MANAGEMENT DCP- Discharge Planning Updated by [id number]: Oscar Grace on 12/02/18 8:[address] Patient Name: SAJAN BONNER Encounter No: [id number] : 1950 Primary Insurance: MEDICARE A & B Anticipated DC Date: 12-02-2018 Planned Disposition: Inpatient Rehab External Planned Provider: [facility] DCP follow-up note: CM SPOKE TO DR. COPELAND WHO INFORMED CM THAT PT IS READY FOR DISCHARFGE TO REHAB. CM REVIEWED CHART, FAXED UPDATE TO [facility] INPATIENT RE[facility] AT [phone]. CM WAITING ADMISSION DETERMINATION FROM INPATIENT REHAB AT [facility]. RYANN Trejo MANGEMENT DCP- Discharge Planning Updated by [id number]: Pamela Blanco on 12/01/18 5:[address] TC TO [facility] IN [place]. SPOKE WITH [facility] ON THE ACUTE REHAB UNIT AT [phone]. FAXED REFERRAL TO [facility] FOR REVIEW IN THE AM. FAX [phone]. DCP- Discharge Planning Updated by [email or web address]: Pamela Blanco on 12/01/18 4:[address] DISCHARGE PLAN IS NOW FOR ACUTE REHAB AT [facility] IN [place], [place]. DCP- Discharge Planning Updated by [id number]: Pamela Blanco on 11/30/18 4:[address] LATE ENTRY 1230 PATIENT'S DISCHARGE HELD TODAY. SHE FEELS WORSE AND IS COMPLAINING OF DIZZINES. CBC AND BMP CHECKED. HCT DROPPED FROM 34.3 - 25.2 IN THREE DAYS. MONITOR PATIENT. CM TO FOLLOW. DCP- Discharge Planning Updated by [id number]: Oscar Wallacewell on 11/29/18 2:[address] Patient Name: SAJAN BONNER Encounter No: [id number] : 1950 Primary Insurance: MEDICARE A & B Anticipated DC Date: 11-30-2018 Planned Disposition: Home DISCHARGE PLANNING NOTE: CM MET WITH PT AND DAUGHTER IN ROOM TO DISCUSS DISCHARGE PLANNING AND NEEDS. SAJAN BONNER provided verbal consent to discuss current and ongoing needs with/in the presence of: DAUGHTER, JOSE LUIS. PT REPORTS LIVING AT HOME INDEPENDENTLY WITH HER SPOUSE. PT HAS "EVERYTHING" AT HOME; PT REPORTS HAVING CPAP, CANE, WALKER, ROLLING WALKER, BEDSIDE COMMODE, WHEELCHAIR AND SHOWER CHAIR. PT GETS MEDICAL EQUIPMENT FROM [facility] IN [place]. PT HAS NO OUTSIDE SERVICES ASSISTING IN THE HOME. CM DISCUSSED AVAILABILITY OF HOME HEALTH, REHAB SERVICES AND MEDICAL EQUIPMENT. PT AND DAUGHTER WERE THINKING OF INPATIENT REHAB AT [facility], BUT THINK PT WILL GO HOME TOMORROW WITH ASSISTANCE OF FAMILY. PT'S DAUGHTER REPORTS THAT SHE THINKS PT WILL BE FINE TOMORROW AND THAT IF SHE DOES NOT GET STRONGER, SHE WILL CONTACT DR. BELL REGARDING POSSIBLE OUTPATIENT REHAB IF NEEDED. PT CANNOT RECEIVE HOME HEALTH THEY HAVE BEEN THROUGH THIS BEFORE AND THERE ARE NO PROVIDERS IN THEIR AREA. PT DENIES DISCHARGE NEEDS, REPORTS HER DAUGHTER WILL PICK HER UP FOR DISCHARGE HOME TOMORROW MORNING. PT REPORTS NURSE PRACTITIONER PRATEEK TOLD HER SHE COULD STAY TILL TOMORROW MORNING AND PT FEELS SHE WILL BE STRONGER TOMORROW MORNING; PT REPORTS SHE IS NORMALLY "WIPED OUT" AFTER DIALYSIS AND DOES NOT GET HER STRENGTH BACK UNTIL THE FOLLOWING MORNING. PT STATES THAT TONIGHT SHE HAS TO HAVE DIALYSIS BEFORE DISCHARGE AND IT IS A THREE [address] HOME, IT WOULD BE LATE AND PT WOULD BE WEAK. IMPORTANT MESSAGE FROM MEDICARE PROVIDED AND EXPLAINED. EDGE INKER NURSE INFORMED THAT PT WILL DISCHARGE HOME TOMORROW MORNING. CM WAS ADVISED BY EDGE INKER NURSE THAT IS INDICATED POSSIBILITY IN THE DISCHARGE ORDER. PT TO DISCHARGE HOME TOMORROW MORNING, 11-30-18, WITH ASSISTANCE OF FAMILY, DENIES NEEDS AT THIS TIME. Oscar Grace, CASE MANAGEMENT DCPIA - Discharge Planning Initial Assessment Updated by ADRIAN: Oscar Grace on 11/29/18 2:58 pm * Is the patient Alert and Oriented? Yes * How many steps to enter\\exit or inside your home? RAMP * PCP DR. BELL, [place] * Pharmacy [facility] IN [place] * Preadmission Environment Home with Family * ADLs Independent * Equipment Bedside Commode CPAP Rolling Walker Shower Chair Walker Wheelchair * Other Equipment PROVIDER - [facility] [place] * List name and contact numbers for known caregivers / representatives who currently or will assist patient after discharge: JOSE LUIS BONNER, DTR, * Verbal permission to speak to the caregivers and representatives has been obtained from the patient. Yes * Community resources currently utilized Other * Please name any agencies selected above. OUTPATIENT DIALYSIS, [facility], MWF, 1130AM, [employer] * Additional services required to return to the preadmission environment? No * Can the patient safely return to the preadmission environment? Yes * Has this patient been hospitalized within the prior 30 days at any hospital? No Coverage Notice Reviewer: [id number] Cherry Grace Notice Issued Date-Time: 11/29/2018 14:15 Notice Type: IM Discharge Notice Notice Delivered To: Family Member Relationship to Patient: Daughter Student Outreach Coordinator Name: JOSE LUIS BONNER Delivery Method: HAND - Hand Delivered Jazmin Days: Prior Verbal Notification: Recipient Understood Notice: Yes Recipient Signature: Yes Med Rec Note Co-signed by Attending: Coverage Notice Comment: Reviewer: [id number] Cherry Grace Notice Issued Date-Time: 12/02/2018 14:20 Notice Type: IM Discharge Notice Notice Delivered To: Patient Relationship to Patient: Student Outreach Coordinator Name: Delivery Method: HAND - Hand Delivered Jazmin Days: Prior Verbal Notification: Recipient Understood Notice: Yes Recipient Signature: Yes Med Rec Note Co-signed by Attending: Coverage Notice Comment: Last DP export: 12/03/18 11:16 a Patient Name: SAJAN BONNER Page [id number] at 1225 All edits/amendments must be made on the electronic document DICTATION DATE: 12/03/181223 UX SPECIALIST: ASHER 12/03/181223 RPT#: [id number] DC DATE: STATUS: ADM IN [facility] [address] [place] [address] END OF REPORT
== END 2018-12-03 14:05 | DRG 248 ==
LOC: D.OPS 07:37 → D.M2 07:37 → D.OPS 10:15 → D.M2 21:04 → D.OPS 11-27 15:16 → D.M2 11-27 15:17
PROVIDERS: General Practice; Internal Medicine; Internal Medicine Cardiovascular Disease; Internal Medicine Interventional Cardiology; Surgery; ADMIT Internal Medicine Nephrology
PROC: 031 Upper Arteries, Bypass (ICD-10-PCS; 2018-11-26 10:15)
PROC: 03C50ZZ Extirpation of Matter from Right Axillary Artery, Open Approach (ICD-10-PCS; 2018-11-26 10:15)
PROC: 037 Upper Arteries, Dilation (ICD-10-PCS; 2018-11-26 10:15)
PROC: 05L70ZZ Occlusion of Right Axillary Vein, Open Approach (ICD-10-PCS; 2018-11-27)
PROC: 4A023N7 Measurement of Cardiac Sampling and Pressure, Left Heart, Percutaneous Approach (ICD-10-PCS; 2018-11-27)
PROC: B2111ZZ Fluoroscopy of Multiple Coronary Arteries using Low Osmolar Contrast (ICD-10-PCS; 2018-11-27)
PROC: B2151ZZ Fluoroscopy of Left Heart using Low Osmolar Contrast (ICD-10-PCS; 2018-11-27)
PROC: 02703EZ Dilation of Coronary Artery, One Artery with Two Intraluminal Devices, Percutaneous Approach (ICD-10-PCS; principal; 2018-11-27 09:00)
PROC: 03773ZZ Dilation of Right Brachial Artery, Percutaneous Approach (ICD-10-PCS; 2018-11-28)
DX: T82.868A Thrombosis due to vascular prosthetic devices, implants and grafts, initial encounter (principal); N18.6 End stage renal disease; I21.4 Non-ST elevation (NSTEMI) myocardial infarction; I12.0 Hypertensive chronic kidney disease with stage 5 chronic kidney disease or end stage renal disease; E11.22 Type 2 diabetes mellitus with diabetic chronic kidney disease; Z99.2 Dependence on renal dialysis; I25.10 Atherosclerotic heart disease of native coronary artery without angina pectoris; T82.898D Other specified complication of vascular prosthetic devices, implants and grafts, subsequent encounter; I77.9 Disorder of arteries and arterioles, unspecified

== ENCOUNTER 2019-04-22 07:23 | Day surgery (SDC) | payer MEDICARE, BC ==
[~2019-04-22] VITALS: Ht 167.6 cm; Wt 120.2 kg
--- NOTE | ~2019-04-22 | OP ---
PATIENT NAME: SAJAN BONNER MEDICAL RECORD: [id number] :[birth year] LOCATION:[facility] ADMISSION DATE: SURGEON: AILEEN GUIDRY MD DATE OF OPERATION: 04/22/2019 PREOPERATIVE DIAGNOSES: End-stage renal disease and dependence on hemodialysis and recent severe steal syndrome developing in her right arm after implantation of an AV graft requiring ligation of same. ADDITIONAL DIAGNOSES: Diabetes, hypertension, and coronary artery disease. REFERRING PHYSICIAN: Isidro Copeland MD OPERATION PERFORMED: Creation of Kristina type brachiobasilic AV fistula at the antecubital level in the left upper extremity. SURGEON: Aileen Guidry MD ANESTHESIA: General with LMA per SUPERVISOR CURING ROOM. PREOPERATIVE NOTE: Ms. Bonner is a 68-year-old white female patient with end-stage renal disease, now on dialysis with a catheter tunneled in the right internal jugular vein. She has had a prior graft in her right arm, which I believe was axillary-axillary loop, which caused severe steal symptoms and had to be ligated emergently. She had polio as a child and her right arm is withered and she preferred to have access in that arm, but now she is returned to the operating room this time for creation of an access in the left upper extremity. She is now quite agreeable to that and prefers that over having access in her thigh. Preoperative vein mapping indicated likely satisfactory veins in the left upper extremity. PROCEDURE IN DETAIL: With the patient under anesthesia in supine position with the left arm abducted, she was prepped and draped in a sterile manner. I applied a [place] drain proximally as a venous tourniquet and applied nitroglycerin ointment to the intact skin of the arm and forearm. I performed a duplex with B-mode ultrasound examination and noted that she had patent and adequate for fistula creation. The cephalic vein and basilic vein with good median antecubital veins. The cephalic vein was smaller and it was deep enough in the upper half of the arm that it would require a super fistulization or translocation and I elected early-on on the basis of this ultrasound to proceed with a brachiobasilic AV fistula, which would require translocation after delay of several weeks. I made a transverse incision and exposed the median cubital veins. Actually they were pared in approximately equal caliber going to the cephalic vein laterally and the basilic vein medially. I was able to actually preserve the cephalic vein and cephalic median cubital vein and median antebrachial vein and simply mobilized the median cubital vein to the basilic from there with a few 3-0 Vicryl ties. The vein was transected and bevelled and flushed with heparinized saline and generally prepared for anastomosis. The brachial artery was exposed as distally as I could and reach it with the proposed vein and the artery was controlled with Silastic loops. I did visualize the proximal radial artery, so I know that this was at least very distal brachial artery, which I utilized. The artery was occluded and opened for a distance of 5 mm. It was flushed proximally and distally with heparinized saline and an end-to-side, end of vein to side of artery anastomosis was then performed with running 7-0 Prolene. When completed and with release of the OPERATIVE REPORT [id number] SAJAN BONNER occluding clamp and silicone loops, the fistula functioned immediately with good continuous pulsatile flow in the basilic vein and continued pulsatile high pressure type flow by Doppler in the distal brachial artery and with excellent pulsatile high resistance flow signals from the radial artery at the wrist. The patient's wound was infiltrated and irrigated with 0.25% Marcaine without epinephrine. Hemostasis was adequate and the wound was closed with interrupted inverted 3-0 Vicryl and then running intracuticular 4-0 Monocryl and Dermabond glue. A dressing of Maxorb Ag, Tegaderm, and Cavilon skin prep was applied and the patient awakened and taken to the recovery room. The patient did not have a regional nerve block for this operation because she is on Plavix and her Plavix was not interrupted preop and she will continue it postop as well. PLAN: She will be allowed to go home today with appointment to return to see me in my office next week. She will continue her same diet, medications and dialysis schedule. Resume activities as tolerated. She is to keep the operative site clean and dry, though she does have a waterproof plastic bandage on it and she may risk getting that wet in the shower. Blood loss was insignificant 5 cc or less. Sponges, instruments and needles were accounted for. No drain was used and no specimen was submitted for histopathology. TRANSINT:[id number] Voice Confirmation ID: [id number] DOCUMENT ID: [id number] AILEEN GUIDRY MD CC: ISIDRO COPELAND [id number] DICTATION DATE: 04/22/19 1118 HEALTH CONCIERGE: 04/22/19 1150 REG [facility] [address] [place] [id number]
[~2019-04-22 07:23] MED LIST changes: +ASPIRIN81 MG PO; +HUMALOG 30100 UNITS/ SC; +HYDROCODON-ACE1 EAC7 PO; +OS-CAL500 MG PO; +PAXIL10 MG PO; +PLAVIX75 MG PO; +TOUJEO SOL300 UNIT/1
[2019-04-22 07:49] LABS: BASOPHILS 0.3 % (0-2); HEMATOCRIT 31.6 % (36.0-48.0); HEMOGLOBIN 10.2 g/dL (12-16); IMMATURE GRANULOCYTES 1.1 % (0-5); LYMPHOCYTES 13.5 % (15-50); MCH 31.2 pg (26.0-34.0); MCHC 32.3 g/dL (31.0-37.0); MCV 96.6 fL (80.0-100.0); MEAN PLATELET VOLUME 9.4 fL (7.4-10.4); MONOCYTES 9.4 % (2-11); NEUTROPHILS 72.7 % (40-80); PLATELET COUNT 197 10x3/uL (130-400); RBC 3.27 10x6/uL (4.00-5.40); RDW 13.1 % (11.5-14.5); WBC 7.6 10x3/uL (4.8-10.8)
[2019-04-22 08:15] LABS: ANION GAP 15.5 mmol/L (8-16); CALCIUM 8.5 mg/dL (8.5-10.1); CARBON DIOXIDE 26.3 mmol/L (21.0-32.0); CREATININE - SERUM 4.2 mg/dL (0.6-1.3); POTASSIUM - SERUM 4.8 mmol/L (3.5-5.1)
[2019-04-22 08:23] LABS: INR 1.01 (0.85-1.17); PROTIME 12.8 SECONDS (11.6-15.0)
[2019-04-22] MEDS ORDERED: PAROXETINE HCL10 MG PO (08:30)
[2019-04-22] MEDS ORDERED: UNISOM SLEEP AI25 MG PO (08:36)
[2019-04-22] MEDS ORDERED: LANTUS INSULIN10 ML SC (08:36)
[2019-04-22] MEDS ORDERED: NEPHRO-VITE RX1 TAB PO (08:37)
[2019-04-22 08:44] VITALS: Ht 167.6 cm; Wt 120.2 kg
[2019-04-22] MEDS ORDERED: ULTRAM50 MG PO (10:55)
--- NOTE | 2019-04-22 12:50 | NUR ---
1223 DC'D BNC 2L/MIN ON PT.
--- NOTE | 2019-04-22 12:50 | NUR ---
1155 FULL LIQUID TRAY SERVED TO PT
--- NOTE | 2019-04-22 12:51 | NUR ---
1238 PT DROPPING O2 SAT TO 89% PT AROUSES EASILY AND WILL TAKE DEEP BREATHS, BUT REMAINS SLEEPY. BNC 2L/MIN PUT BACK ON PT. O2 SAT UP TO 94%
--- NOTE | 2019-04-22 13:53 | NUR ---
1332 PT BECOMING MORE AWAKE. DC'D [facility] 2L/[place].
== END 2019-04-22 15:15 | disposition home or self-care (01) ==
LOC: D.OPS 07:23
PROVIDERS: Surgery; ATTEND Internal Medicine Nephrology
DX: E11.22 Type 2 diabetes mellitus with diabetic chronic kidney disease (principal); I12.0 Hypertensive chronic kidney disease with stage 5 chronic kidney disease or end stage renal disease; N18.6 End stage renal disease; Z99.2 Dependence on renal dialysis; I25.10 Atherosclerotic heart disease of native coronary artery without angina pectoris; Z01.812 Encounter for preprocedural laboratory examination; Z86.12 Personal history of poliomyelitis

== ENCOUNTER 2019-05-27 06:15 | Day surgery (SDC) | payer MEDICARE, BC ==
[~2019-05-27] VITALS: Ht 167.6 cm; Wt 108.4 kg
--- NOTE | ~2019-05-27 | OP ---
PATIENT NAME: SAJAN BONNER MEDICAL RECORD: [id number] :50 LOCATION:[facility] ADMISSION DATE: SURGEON: AILEEN GUIDRY MD DATE OF OPERATION: 05/27/2019 PREOPERATIVE DIAGNOSES: End-stage renal disease and dependence on hemodialysis and status post creation of a brachial artery to basilic veins Kristina type fistula at the antecubital level. FINDINGS: She has returned to the operating room at this time to revise this by converting it to a translocated basilic vein fistula. The patient has a history of severe steal syndrome developing early after AV graft implantation in the right arm and obviously there is great concern for that to potentially happen again and will need to be watched for closely. DESCRIPTION OF PROCEDURE: Under general anesthesia with an LMA per [employer], the patient was placed in supine position and the left arm prepped and draped in sterile manner. I examined her with ultrasound and noted that the basilic vein was dilating nicely, it was up to about a centimeter in diameter, full length of the vein. I made a longitudinal incision and exposed the vein from axilla to antecubital space, exposing close to, but not actually exposing the arterial anastomosis. The vein was clamped close to the arterial anastomosis and then divided and bevelled and the proximal portion flushed with heparinized saline and treated with topical papaverine. It was placed in a very superficial subcutaneous tunnel, which passed anteriorly and laterally to the operative field and came back to the antecubital space where it was anastomosed end-to-end to the brachial vein just proximal to the arterial anastomosis. With release of the occluding clamps, there was a slight leak along the suture line, which was treated with a single simple suture of 6-0 Prolene and an application of Evicel tissue sealant. Doppler examination revealed excellent flow in the revised translocated fistula with preservation of flow in the radial artery and ulnar artery at the wrist. There was no change in the Doppler flow signals at the wrist with occlusion of her AV fistula. I think that steal syndrome in this circumstance the likelihood is very small. The wound was infiltrated and irrigated with 0.25% Marcaine with epinephrine although Marcaine without epinephrine was used at more superficial levels to avoid causing any ischemia along the incision itself and the skin. The wound was closed over a 10-mm flat fluted drain brought out with a trocar inferiorly. The wound was closed in layers with interrupted 3-0 Vicryl and running intracuticular 4-0 Stratafix. The incision was sealed with Dermabond glue and dressed with Maxorb Ag, Tegaderm and Cavilon skin prep and she was awakened and taken to the recovery room in stable condition. Blood loss was less than 100 cc, none was replaced intraoperatively. Sponges, instruments, and needles were accounted for and one drain was used. I expect her to be discharged home today and plan for her to return to see me in my office next week. Her family will be instructed as to the emptying the RAUL drain reservoir frequently and keeping a written record of the volumes of drainage and to bring it with them when she comes back to the office. We will consult home health also to see her to help manage the RAUL drain and she is to continue her same home medications and diet and activities as tolerated and I OPERATIVE REPORT [id number] SAJAN BONNER have given her a prescription for 20 tablets of Palisades 5/325, she can take one every 4 to 6 hours as needed for pain. TRANSINT:[id number] Voice Confirmation ID: [id number] DOCUMENT ID: [id number] AILEEN GUIDRY MD CC: CRISTIAN COPELAND [id number] DICTATION DATE: 05/27/19 1127 CHEST PAIN COORDINATOR: 05/27/19 1200 [facility] [address] [place] [address]
[~2019-05-27 06:15] MED LIST changes: +LANTUS INSULIN10 ML SC; +NEPHRO-VITE RX1 TAB PO; +UNISOM SLEEP AI25 MG PO
[2019-05-27 06:49] LABS: BASOPHILS 0.4 % (0-2); EOSINOPHILS 2.6 % (0-7); HEMATOCRIT 32.9 % (36.0-48.0); HEMOGLOBIN 10.7 g/dL (12-16); IMMATURE GRANULOCYTES 0.4 % (0-5); LYMPHOCYTES 18.6 % (15-50); MCH 31.8 pg (26.0-34.0); MCHC 32.5 g/dL (31.0-37.0); MCV 97.9 fL (80.0-100.0); MEAN PLATELET VOLUME 9.9 fL (7.4-10.4); MONOCYTES 11.1 % (2-11); NEUTROPHILS 66.9 % (40-80); PLATELET COUNT 200 10x3/uL (130-400); RBC 3.36 10x6/uL (4.00-5.40); RDW 14.2 % (11.5-14.5); WBC 5.3 10x3/uL (4.8-10.8)
[2019-05-27 07:15] LABS: ANION GAP 13.9 mmol/L (8-16); CALCIUM 8.5 mg/dL (8.5-10.1); CARBON DIOXIDE 26.5 mmol/L (21.0-32.0); CREATININE - SERUM 3.3 mg/dL (0.6-1.3); POTASSIUM - SERUM 4.4 mmol/L (3.5-5.1)
[2019-05-27 07:46] LABS: INR 1.01 (0.85-1.17); PROTIME 12.8 SECONDS (11.6-15.0)
[2019-05-27 08:09] VITALS: Ht 167.6 cm; Wt 108.4 kg
--- NOTE | 2019-05-27 14:27 | NUR ---
1355 1 NORCO 5/325MG PO FOR COMPLAINTS OF THROBBING TO LEFT UPPER ARM. RANKS PAIN 5-6/10. Yi Sosa.NParag 1405 RAUL DRAIN EMPTIED OF 30ML BRIGHT RED BLOODY FLUID. DRAIN TUBING MILKED. DAUGHTER INSTRUCTED IN RAUL DRAIN CARE & VOICED UNDERSTANDING. O2 SAT DOWN TO 87%. O2/2L/NASAL CANNULA REAPPLIED. Yi MaderaNParag 1410 REPORT TO Layton HERNANDEZ R.N.. Yi ASHLEY R.N.
--- NOTE | 2019-05-27 14:36 | NUR ---
1435 D/C INSTRUCTIONS, MED REC, RTC APPT., RX, DRAIN CARE REVIEWED WITH DAUGHTERS. UNDERSTANDING VOICED. Yi ASHLEY R.N.
--- NOTE | 2019-05-27 20:14 | NUR ---
1600 RAUL EMPTIED AND RECIEVED 20ML OF BLLOD DRAINAGE. LEFT ARM BRUISED TO LEFT UPPER ARM, SOFT TO TOUCH, PALPABLE THRILL. 1610 PT ON 1 LITER OF O2. SATS IN UPPER 80S. SLEEPING AFTER PAIN PILL STARTED WORKING. 1700 PT SITTING UP ON SIDE OF BED IV REMOVED AND MILD NAUSEA. NO VOMITING. DAUGHTERS VERY SUPPORTIVE OF PT. 1755 NAUSEA RELIEVED AFTER EATING SOME JELLO AND CRACKERS AND PEANUT BUTTER.
== END 2019-05-27 17:55 | disposition home or self-care (01) ==
LOC: D.OPS 06:15
PROVIDERS: Surgery; ATTEND Internal Medicine Nephrology
DX: N18.6 End stage renal disease (principal); Z99.2 Dependence on renal dialysis; Z01.812 Encounter for preprocedural laboratory examination